=== PATIENT | female | born 2000 | race Caucasian/White ===

== ENCOUNTER 2022-12-26 09:20 | Outpatient (OUT) | payer BC, SELFPAY ==
--- NOTE | 2022-12-26 09:24 | US_ITS ---
[address] [address] Patient Name: CARLOS ENRIQUE GAUTAM MRN: [id number] date: 2000 Sex: F Assigned Patient Location: US Current Patient Location: Accession/Order Number: [id number] Exam Date: 12/26/2022 09:24 Report Date: 12/26/2022 13:11 At the request of: OSMAR LEE Procedure: US pelvis EXAMINATION: US pelvis HISTORY: OVARIAN CYST follow-up COMPARISON: No relevant comparison available. TECHNIQUE: Transabdominal and/or transvaginal sonographic examination was performed as indicated by examination type. FINDINGS: UTERUS: Normal size and appearance. Uterus size: 7.3 x 2.3 x 3.6 cm ENDOMETRIUM: Normal homogeneous appearance. Endometrial thickness: 4 mm RIGHT OVARY: Normal size and appearance. Blood flow present within ovary on color Doppler. Ovary size: 2.4 x 1.3 x 1.5 cm LEFT OVARY: Normal size and appearance; incidental 1.1 cm dominant follicle. Duplex Doppler demonstrates normal waveform and flow; resistive index 0.6. Ovary size: 3.1 x 1.0 x 1.9 cm CUL-DE-SAC: Unremarkable. No significant free fluid. BLADDER: Unremarkable. OTHER: None. US/US pelvis IMPRESSION: 1. Normal appearance of the uterus, endometrium, and ovaries. Electronically authenticated by: ANAIS GAMEZ Date: 12/26/2022 13:11
== END 2022-12-26 09:21 | disposition home or self-care (01) ==
LOC: US 09:21
PROVIDERS: PCP Family Medicine; Visit Provider Obstetrics & Gynecology
DX: Z87.42 Personal history of other diseases of the female genital tract (principal); Q62.5 Duplication of ureter
CPT/HCPCS: 76856

== ENCOUNTER 2023-12-18 20:49 | Outpatient (REF) | payer OTHER, SELFPAY | END 2023-12-18 20:50 | disposition home or self-care (01) | LOC: LAB 20:49 | PROVIDERS: PCP Family Medicine; Visit Provider Obstetrics & Gynecology | DX: Z01.419 Encounter for gynecological examination (general) (routine) without abnormal findings (principal) | CPT/HCPCS: 88175 ==

== ENCOUNTER 2025-01-28 20:14 | Outpatient (REF) | payer OTHER, SELFPAY ==
--- OUTSIDE RECORDS SUMMARY | 2025-01-28 15:00 | XMS_ITS | Encounter Summary ---
Author Organization [facility] Address [address] [place] [address] Care Team Providers Care Journeyman Operator Assistant Name Role Phone Petty Araya MD Primary Care Provider [phone] Nancy Atwood CORPORATE PLANNING MANAGER Unavailable [phone] Nnacy Atwood CORPORATE PLANNING MANAGER Unavailable [phone] Reason for Visit * Reason Comments Well Women Visit Encounter Details Date Type Department Care Team (Latest Contact Info) Description 01/28/2025 3:00 PM EDT Procedure Visit [facility] [address] [place] [address] Clarita Kimball PA [address] [place], [facility]11 Well woman exam with routine gynecological exam Social History Tobacco Use Types Packs/Day Years Used Date Smoking Tobacco: Never Smokeless Tobacco: Never Alcohol Use Standard Drinks/Week Comments Yes 2 (1 standard drink = 0.6 oz pur e alcohol) B1300 Health Literacy Answer Date Recor ded How often do you need to hav e someone help you when you read instructions, pamphlets, or other written material from your doctor or pharmacy? Never 09/18/2024 Humiliation, Afraid, Rape, and Kick questionnair e Answer Date Recorded Within the last year, have y ou been afraid of your partner or ex-partner? No 09/18/2024 Within the last year, have y ou been humiliated or emotionally abused in other ways by your partner or ex-partner? No Within the last year, have y ou been kicked, hit, slapped, or otherwise physically hurt by your partner or ex-partner? No 09/18/2024 Within the last year, have y ou been raped or forced to have any kind of sexual activity by your partner or ex-partner? No 09/18/2024 Social Connection and Isolat ion Panel [NHANES] Answer Date Recorded In a typical week, how many times do you talk on the phone with family, friends, or neighbors? More than three times a week 09/18/2024 How often do you get togethe r with friends or relatives? Once a week 09/18/2024 How often do you attend chur or sabianism services? 1 to 4 times per year 09/18/2024 Do you belong to any clubs o r organizations such as presybeterian groups, unions, fraternal or athletic groups, or school groups? No 09/18/2024 How often do you attend meet ings of the clubs or organizations you belong to? Never 09/18/2024 Are you , , di vorced, , never , or living with a partner? Never 09/18/2024 AUDIT-C Answer Date Recorded Q1: How often do you have a drink containing alc ohol? 2-4 times a month 09/18/2024 Q2: How many drinks containi ng alcohol do you have on a typical day when you are drinking? 3 or 4 09/18/2024 Q3: How often do you have si x or more drinks on one occasion? Less than monthly 09/18/2024 Overall Financial Resource Strain (CARDIA) Answe r Date Recorded How hard is it for you to pa y for the very basics like food, housing, medical care, and heating? Not hard at all 09/18/2024 [facility] [place] of Occupat ional Health - Occupational Stress Questionnaire Answer Date Recorded Do you feel stress - tense, restless, nervous, or anxious, or unable to sleep at night because your mind is troubled all the time - these days? Only a little 09/18/2024 Exercise Vital Sign Answer Date Recorde d On average, how many days pe r week do you engage in moderate to strenuous exercise (like a brisk walk)? 3 days 09/18/2024 On average, how many minutes do you engage in exercise at this level? 60 min 09/18/2024 Hunger Vital Sign Answer Date Recorded Within the past 12 months, y ou worried that your food would run out before you got the money to buy more. Never true 09/19/19 25 Within the past 12 months, t he food you bought just didn't last and you didn't have money to get more. Never true 09/18/2024 PRAPARE - Transportation Answer Date Re corded In the past 12 months, has l ack of transportation kept you from medical appointments or from getting medications? No 11/2024 In the past 12 months, has l ack of transportation kept you from meetings, work, or from getting things needed for daily living? No 09/18/2024 Housing Stability Vital Sign Answer Willy e Recorded In the last 12 months, was t here a time when you were not able to pay the mortgage or rent on time? No 09/18/2024 In the past 12 months, how m any times have you moved where you were living? 1 09/18/2024 At any time in the past 12 m [facility], were you homeless or living in a halfway (including now)? No 09/18/2024 Comments No Sex and Gender Information Value Date Recorded Sex Assigned at Not on file Legal Sex Female 7:15 PM EDT Gender Identity Not on file Sexual Orientation Not on file documented as of this encounter Last Filed Vital Signs Vital Sign Reading Time Taken Comments Blood Pressure - - Pulse - - Temperature - - Respiratory Rate - - Oxygen Saturation - - Inhaled Oxygen Concentration - - Weight 74.9 kg (165 lb 1.9 oz) 01/28/2025 3:02 P M EDT Height - - Body Mass Index 26.65 07/25/2023 3:24 PM EDT documented in this encounter Plan of Treatment Upcoming Encounters Date Type Department Care Team (Late st Contact Info) Description 04/16/2025 2:30 PM EST Office Visit [facility] [address] [facility] [address] Nancy Atwood NP [address] [place], [place] [id number] 01/22/2026 11:00 AM EDT Procedure Visit [facility] [address] [place] [address] Clarita Kimball PA [address] [place], [place] [id number] Scheduled Orders Name Type Priority Associated Diagnoses Orde r Schedule Pap Smear Pathology and Cytology Routine Well woman exam with routine gynecological exam Ordered: 01/28/2025 documented as of this encounter Visit Diagnoses Diagnosis Well woman exam with routine gynecological exam Routine gynecological examination documented in this encounter Care Teams Journeyman Operator Assistant Relationship Specialty Start Date End Date Herreraly, Petty Cervantes MD PCP - General Family Medicine 09/19/24 Nancy Atwood CORPORATE PLANNING MANAGER [address] [place] [address] PCP - Medical [place] [employer] 12/27/22 05/14/99 Nancy Atwood CORPORATE PLANNING MANAGER [address] [place], [place] [id number] Nurse Practitioner Family Medicine 10/01/24 documented as of this encounter
--- OUTSIDE RECORDS SUMMARY | 2025-01-28 20:18 | XMS_ITS | Clinical Summary ---
Author Organization [facility] Address [address] [place] [address] Care Team Providers Care Fingerprint Clerk Name Role Phone Darwin Contreras MD Primary Care Provider [phone] Allergies No known active allergies Medications lisdexamfetamine (VYVANSE) 40 MG capsule Take 1 (one) capsule (40 mg total) by mouth daily . 08/12/2022 Active montelukast (SINGULAIR) 10 mg tablet Take by mouth . 11/28/2019 Active Low-Ogestrel, 28, 0.3-30 mg-mcg per tablet Take 1 (one) tablet by mouth daily . Active levocetirizine (XYZAL) 5 MG tablet Take by mouth every evening . 01/19/2021 Active brompheniramine- pseudoePHEDrine- DM 2-30-10 mg/5 mL syrupIndications :Upper respiratory tract infection, unspecified type Take 10 mL by mouth 4 (four) times a day as needed (Medication may have drowsy side effect, do not combine with other sleep agents) . 200 mL 03/28/2023 Active Active Problems No known active problems Social History Tobacco Use Types Packs/Day Years Used Date Smoking Tobacco: Never Smokeless Tobacco: Never Tobacco Cessation:Counseling Given: Not Answered Comments Unknown Sex and Gender Information Value Date Recorded Sex Assigned at Not on file Legal Sex Female 4:44 AM EST Gender Identity Not on file Sexual Orientation Not on file Last Filed Vital Signs Vital Sign Reading Time Taken Comments Blood Pressure 123/83 03/28/2023 12:05 PM EST Pulse 98 03/28/2023 12:05 PM EST Temperature 36.8 C (98.2 F) 03/28/2023 12:05 PM EST Respiratory Rate 16 03/28/2023 12:05 PM EST Oxygen Saturation 98% 03/28/2023 12:05 PM EST Inhaled Oxygen Concentration - - Weight 68 kg (150 lb) 03/28/2023 12:05 PM EST Height 167.6 cm (5' 6 ) 03/28/2023 12:05 PM EST Body Mass Index 24.21 03/28/2023 12:05 PM EST Plan of Treatment Health Maintenance Due Date Last Done Comments Chlamydia Screening 2002 Depression Screening/Follow-Up (PHQ-2/9) 2014 HIV Screening 2017 Hepatitis C Screening 2020 Wellness Visit 12/01/2020 12/02/2019, 11/29/2018 Pap Smear 07/29/2023 Tetanus: Every 10yrs 07/31/2024 07/31/2014 COVID-19 Vaccine ( season) 2025 03/05/2021, 09/01/2020, 08/11/2020 Influenza Vaccine (#1) 2025 02/23/2023, 2021 Pneumococcal Vaccine: Ped or At-Risk Aged Out 02/01/2003, 2002, 2002 No longer eligible based on patient's age to complete this topic HPV Vaccines Completed 04/30/2020, 12/13, 10/29/2019, Additional history exists Insurance [facility] PPO BCBS OUT OF STATE [facility] Care Teams Fingerprint Clerk Relationship Specialty Start Date End Date Darwin Contreras MD [address] [place] [address] PCP - General Family Medicine 03/28/23
--- OUTSIDE RECORDS SUMMARY | 2025-01-28 20:18 | XMS_ITS | Encounter Summary ---
Author Organization [facility] Address [address] [place] [address] Care Team Providers Care Shipping Point Inspector Name Role Phone Petty Araya MD Primary Care Provider [phone] Nancy Atwood BROOM BUNDLER Unavailable [phone] Nancy Atwood BROOM BUNDLER Unavailable [phone] Encounter Details Date Type Department Care Team (Latest Contact Info) Description 01/28/2025 Travel Social History Tobacco Use Types Packs/Day Years [...] 09/18/2024 How often do you attend chur ch or jewish services? 1 to 4 times per year 09/18/2024 Do you belong to any clubs o r organizations such as orthodox groups, unions, fraternal or athletic groups, or [...] and heating? Not hard at all 09/18/2024 [facility] of Occupat ional Health - Occupational Stress [...] time in the past 12 m [facility], were you homeless or living in a halfway (including now)? No 09/18/2024 Comments No Sex and Gender Information Value Date Recorded Sex Assigned at Not on file Legal Sex Female 7:15 PM EDT Gender Identity Not on file Sexual Orientation Not on file documented as of this encounter Plan of Treatment Upcoming Encounters Date Type Department Care Team (Late st Contact Info) Description 04/16/2025 2:30 PM EST Office Visit [facility] [address] [place] [phone] Nancy Atwood NP [address] [place], [place] [id number] 01/22/2026 11:00 AM EDT Procedure Visit [facility]NA LEWIS [address] [phone] Clarita Kimball PA [address] [place] [address] documented as of this encounter Visit Diagnoses Not on filedocumented in this encounter Care Teams Shipping Point Inspector Relationship Specialty Start Date End Date Petty Araya MD PCP - General Family Medicine 09/19/24 Nancy Atwood NP [address] [place], [place] [phone] PCP - Medical [place] [employer] 12/27/22 05/14/99 Nancy Atwood NP [address] [place] [address] Nurse Practitioner Family Medicine 10/01/24 documented as of this encounter
--- OUTSIDE RECORDS SUMMARY | 2025-01-28 20:18 | XMS_ITS | Clinical Summary ---
Author Organization [facility] Address [address] [place] [address] Care Team Providers Care Agricultural Engineering Teacher Name Role Phone Darwin Contreras MD Primary Care Provider [phone] Allergies No known active allergies Medications Lisdexamfetamine Dimesylate 40 MG capsule Take 1 capsule by mouth daily. 3 Active norgestrel-ethinyl estradiol (Low-Ogestrel) 0.3-30 MG-MCG tablet Take 1 tablet by mouth daily. 3 Active Montelukast 10 MG tablet Take 1 tablet by mouth daily. Active Levocetirizine Dihydrochloride (XYZAL PO) Take by mouth. Active Social History Tobacco Use Types Packs/Day Years Used Date Smoking Tobacco: Never Smokeless Tobacco: Never Tobacco Cessation:Counseling Given: Not Answered Alcohol Use Standard Drinks/Week Comments Not Currently 0 (1 standard drink = 0.6 oz pur e alcohol) Comments Unknown Sex and Gender Information Value Date Recorded Sex Assigned at Not on file Legal Sex Female 3:34 PM EDT Gender Identity Female 12/28/2021 2:17 PM EDT Sexual Orientation Straight 12/28/2021 2: 17 PM EDT Last Filed Vital Signs Vital Sign Reading Time Taken Comments Blood Pressure 103/74 08/25/2022 7:17 PM EDT Pulse 98 08/25/2022 7:17 PM EDT Temperature 36.7 C (98.1 F) 08/25/2022 7:17 PM EDT Respiratory Rate 19 08/25/2022 7:17 PM EDT Oxygen Saturation 99% 08/25/2022 4:09 PM EDT Inhaled Oxygen Concentration - - Weight - - Height 167.6 cm (5' 6 ) 08/25/2022 4:09 PM EDT Body Mass Index - - Plan of Treatment Health Maintenance Due Date Last Done Comments HEPATITIS C VIRUS SCREENING 2002 HIV SCREENING DISCUSSION 2017 CERVICAL CANCER SCREENING DISCUSSION 07/29/2023 TETANUS 07/31/2024 07/31/2014, 12/13, 02/01/2003, Additional history exists CHLAMYDIA SCREEN 08/29/2024 08/30/2023 GONORRHEA SCREEN 08/29/2024 08/30/2023 COVID-19 VACCINE ( season) 2025 03/05/2021, 09/01/2020, 08/11/2020 INFLUENZA VACCINE (#1) 2025 02/23/2023, 2021 HEP B VACCINE Completed 02/01/2003, 11/12, 2002 PNEUMOCOCCAL VACCINE SERIES Aged Out 01/14, 2002, 2002 No longer eligible based on patient's age to complete this topic TDAP (ADULT) Completed 07/31/2014, 12/13, 02/01/2003 HPV VACCINE ADOL Completed 04/30/2020, , 10/29/2019 HPV VACCINE Completed 04/30/2020, 12/13, 10/29/2019 Procedures Procedure Name Priority Date/Time Associated Diagnosis Comments CHLAMYDIA & GONORRHEA AMPLIFIED PROBE Routine 08/30/2023 2:57 PM EDT Acute candidiasis of vulva and vagina Tachycardia, unspecified from Last 3 Months or Most Recently Relevant to Health Maintenance Results * CHLAMYDIA & GONORRHEA AMPLIFIED PROBE (08/30/2023 2:57 PM EDT) Chlamydia trachomatis Amplified Probe Not Detected Not Detected HOLOGIC PANTHER 08/31/2023 7:46 AM EDT [facility] Comment:A negative test resu lt for Chlamydia trachomatis does not preclude the possibility of infection. Results should be considered in conjunction with other clinical and laboratory findings. Neisseria gonorrhea Amplified Probe Not Detected Not Detected HOLOGIC PANTHER 08/31/2023 7:46 AM EDT [facility] Comment:A negative test resu lt for Neisseria gonorrhoeae does not preclude the possibility of infection. Results should be considered in conjunction with other clinical and laboratory findings. Genital Fluid/Swab SPECIMEN FROM VAGINA / Unknown 08/30/2023 2:57 PM EDT 08/30/2023 8:48 PM EDT Narrative [facility] - 08/31/2023 7:46 AM EDT This test was performed using Weblogic Administrator Mediated Amplification for the detection of Chlamydia trachomatis and/or Neisseria gonorrhoeae nucleic acid. This assay is not intended for the evaluation of suspected sexual abuse or other medico-legal indications. Beny Márquez MD MICROBIOLOGY - GENERAL ORDERABLES Final Result [facility] [address] [address] from Last 3 Months or Most Recently Relevant to Health Maintenance [facility] Care Teams Agricultural Engineering Teacher Relationship Specialty Start Date End Date Darwin Contreras MD PCP - General Family Medicine 08/25/22
--- OUTSIDE RECORDS SUMMARY | 2025-01-28 20:18 | XMS_ITS | Encounter Summary ---
Author Organization [facility] Address [address] [place] [address] Care Team Providers Care Cash Applications Representative Name Role Phone Petty Araya MD Primary Care Provider [phone] Nancy Atwood TAKER AWAY Unavailable [phone] Nancy Atwood TAKER AWAY Unavailable [phone] Reason for Visit * Reason Comments Med Refill Encounter Details Date Type Department Care Team (Late st Contact Info) Description 01/18/2025 Refill [facility] [address] [place] [address] Pradip Fallon DO [address] [place], [place] [id number] Encounter for surveillance of contraceptive pills Social History Tobacco Use Types Packs/Day Years [...] How often do you attend chur or hindu services? 1 to 4 times per year 09/18/2024 Do you belong to any clubs o r organizations such as mu-ism groups, unions, fraternal or athletic groups, or [...] and heating? Not hard at all 09/18/2024 [facility] [place] of Occupat ional Health - Occupational Stress [...] any time in the past 12 m [facility], were you homeless or living in a nursing home (including now)? No 09/18/2024 Comments No Sex [...] Office Visit [facility] [address] [place] [phone] Nancy Atwood NP [address] [place] [address] 01/22/2026 11:00 AM EDT Procedure Visit [facility]NA LEW[facility] [address] [place] [phone] Clarita Kimball PA [address] [place], [place] [phone] documented as of this encounter Visit Diagnoses Diagnosis Encounter for surveillance of contraceptive pills documented in this encounter Care Teams Cash Applications Representative Relationship Specialty Start Date End Date Wonderly, Petty Cervantes MD PCP - General Family Medicine 09/19/24 Nancy Atwood NP [address] [place], [place] [phone] PCP - Medical [facility] 12/27/22 05/14/99 Nancy Atwood NP [address] [place], [place] [phone] Nurse Practitioner Family Medicine 10/01/24 documented as of this encounter
--- OUTSIDE RECORDS SUMMARY | 2025-01-28 20:18 | XMS_ITS | Encounter Summary ---
Author Organization [facility] Address [address] [facility] [place] [address] Care Team Providers Care Gang Investigator Name Role Phone Petty Araya MD Primary Care Provider [phone] Nancy Atwood DELIVERY REP Unavailable [phone] Nancy Atwood DELIVERY REP Unavailable [phone] Encounter Details Date Type Department Care Team (Late st Contact Info) Description 01/28/2025 [employer] flowsheet [facility] [address] [place] [address] Clarita Kimball PA [address] [place], [facility] Social History Tobacco Use Types Packs/Day Years [...] How often do you attend chur or samaritan services? 1 to 4 times per year 09/18/2024 Do you belong to any clubs o r organizations such as restorationist groups, unions, fraternal or athletic groups, or [...] and heating? Not hard at all 09/18/2024 [facility] [place] of Occupat ional Health - Occupational Stress [...] any time in the past 12 m [facility], were you homeless or living in a residential (including now)? No 09/18/2024 Comments No Sex [...] Visit [facility] [address] [place] [address] Nancy Atwood NP [address] [place] [address] 01/22/2026 11:00 AM EDT Procedure Visit [facility]NA LEW[facility] [address] [place] [address] Clarita Kimball PA [address] [place] [address] documented as of this encounter Visit Diagnoses Not on filedocumented in this encounter Care Teams Gang Investigator Relationship Specialty Start Date End Date Wonderly, Petty Cervantes MD PCP - General Family Medicine 09/19/24 Nancy Atwood NP [address] [place], [place] [id number] PCP - Medical [place] [employer] 12/27/22 05/14/99 Nancy Atwood NP [address] [place], [place] [phone] Nurse Practitioner Family Medicine 10/01/24 documented as of this encounter
--- OUTSIDE RECORDS SUMMARY | 2025-01-28 20:18 | XMS_ITS | Encounter Summary ---
Author Organization [facility] Address [address] [place] [address] Care Team Providers Care Fitness Plan Coordinator Name Role Phone Petty Araya MD Primary Care Provider [phone] Nancy Atwood MAINTENANCE PLUMBER Unavailable [phone] Nancy Atwood MAINTENANCE PLUMBER Unavailable [phone] Encounter Details Date Type Department Care Team (Late st Contact Info) Description 01/20/2025 Orders Only [facility] [address] [place] [address] Summer Terrazas LPN [address] [place] [address] Social History Tobacco Use Types Packs/Day Years [...] How often do you attend chur or yazdanism services? 1 to 4 times per year 09/18/2024 Do you belong to any clubs o r organizations such as episcopalian groups, unions, fraternal or athletic groups, or [...] and heating? Not hard at all 09/18/2024 [facility] [place] of Occupat ional Health - Occupational Stress [...] any time in the past 12 m [facility], were you homeless or living in a half-way (including now)? No 09/18/2024 Comments No Sex and Gender Information Value Date Recorded Sex Assigned at Not on file Legal Sex Female 7:15 PM EDT Gender Identity Not on file Sexual Orientation Not on file documented as of this encounter Plan of Treatment Upcoming Encounters Date Type Department Care Team (Late st Contact Info) Description 04/16/2025 2:30 PM EST Office Visit [facility] [address] [place] [address] Nancy Atwood NP [address] [place] [address] 01/22/2026 11:00 AM EDT Procedure Visit [facility]NA LEWIS [address] [place] [address] Clarita Kimball PA [address] [address] documented as of this encounter Procedures Procedure Name Priority Date/Time Associated Diagnosis Comments PAP SMEAR Routine 12/18/2023 12:00 AM EDT documented in this encounter Results * Pap Smear (12/18/2023 12:00 AM EDT) Swab Cervical swab / Unknown Vasyl Nurse [facility] CYTOLOGY ORDERABLES Final Result EXTERNAL LAB documented in this encounter Visit Diagnoses Not on filedocumented in this encounter Care Teams Fitness Plan Coordinator Relationship Specialty Start Date End Date Petty Araya MD PCP - General Family Medicine 09/19/24 Nancy Atwood NP [address] [address] PCP - Medical [place] [employer] 12/27/22 05/14/99 Nancy Atwood NP [address] [address] Nurse Practitioner Family Medicine 10/01/24 documented as of this encounter
--- OUTSIDE RECORDS SUMMARY | 2025-01-28 20:18 | XMS_ITS | Clinical Summary ---
Author Organization [facility] Address [address], [address] [place] [address] Care Team Providers Care Car Ferrier Name Role Phone Unavailable Primary Care Provider Unavailabl e Encounters Date Type Department Care Team Description 11/07/2024 7:02 AM EDT - 11/07/2024 11:59 PM EDT Hospital Encounter [facility] [address] [place], [place] [id number] Discharge Disposition: Home or Self Care from Last 3 Months Social History Tobacco Use Types Packs/Day Years Used Date Smoking Tobacco: Never Assessed Comments Unknown Sex and Gender Information Value Date Recorded Sex Assigned at Not on file Legal Sex Female 2:54 PM EDT Gender Identity Not on file Sexual Orientation Not on file Plan of Treatment Health Maintenance Due Date Last Done Comments Flu vaccine (#1) 12/13/2024 06/14/2024, 04/2023, 02/22/2022 COVID-19 Vaccine (2023-2 5 season) 2025 DTaP/Tdap/Td vaccine (8 - Td or Tdap) 10/24/2034 10/24/2024, 07/31/2014, 12/27/2007, Additional history exists Polio vaccine Completed 12/27/2007, 01/14, 2002, Additional history exists Procedures Procedure Name Priority Date/Time Associated Diagnosis Comments QUANTIFERON (R) TB GOLD Routine 11/07/2024 1:23 PM EDT from Last 3 Months Results * Quantiferon TB Gold (11/07/2024 1:23 PM EDT) QuantiFERON Nil 0.04 IU/mL 1:23 PM EDT [facility] Quantiferon TB1 Minus NIL 0.01 0.00 - 0.34 IU/mL 11/07/2024 1:23 PM EDT [facility] Quantiferon TB2 Minus NIL 0.00 0.00 - 0.34 IU/mL 11/07/2024 1:23 PM EDT [facility] QuantiFERON-TB minus NIL 9.96 IU/mL 11/07/2024 1:23 PM EDT [facility] Quantiferon TB Interpretation NEGATIVE NEGATIVE IU/mL 11/07/2024 1:23 PM EDT [facility] Comment: Quantiferon TB Gold Plus Interferon gamma release is measured for specimens from each of the four collection tubes. A qualitative result (Negative, Positive, or Indeterminate) is based on interpretation of the four values: NIL, MITOGEN minus NIL (MITOGEN-NIL), TB1 minus NIL (TB1-NIL), and TB2 minus NIL (TB2-NIL). The NIL value represents nonspecific reactivity produced by the patient specimen. The MITOGEN-NIL value serves as the positive control for the patient specimen, demonstrating successful lymphocyte activity. The TB1-NIL tube specifically detects CD4+ lymphocyte reactivity, specifically stimulated by the TB1 antigens. The TB2-NIL tube detects both CD4+ and CD8+ lymphocyte reactivity, stimulated by TB2 antigens. An overall negative result does not preclude the possibility of M. tuberculosis infection or tuberculosis disease. A false-positive result in the absence of other clinical evidence of TB infection is not uncommon. Refer to: Updated Guidelines for Using Interferon Gamma Release Assays to Detect Mycobacterium tuberculosis Infection -- [place], 2010 (http://www.cdc.gov/mmwr/preview/mmwrhtml/jb0995e6.htm), for more information concerning test performance in low-prevalence populations and use in occupational screening. 11/07/2024 1:23 PM EDT 11/07/2024 1:23 PM EDT Xiomara Jeronimo PA-C HEMATOLOGY ORDERABLES Final Result [facility] [address] [place] [address], [place] [phone] from Last 3 Months
--- OUTSIDE RECORDS SUMMARY | 2025-01-28 20:18 | XMS_ITS | Encounter Summary ---
Author Organization [facility] Address [address] [facility] [place] [address] Care Team Providers Care Environmental Technician Name Role Phone Darwin Contreras MD Primary Care Provider [phone] Petty Araya MD Primary Care Provider [phone] Nancy Atwood REAGENT TENDER HELPER Unavailable [phone] Nancy Atwood REAGENT TENDER HELPER Unavailable [phone] Encounter Details Date Type Department Care Team (Late st Contact Info) Description 12/20/[address] [facility] Miladis [address] [place] [id number] Bill Beltran DPM [address] [facility] [place] [address] Social History Tobacco Use Types Packs/Day Years Used Date Smoking Tobacco: Never Alcohol Use Standard Drinks/Week Comments Never 0 (1 standard drink = 0.6 oz pur e alcohol) Comments Unknown Sex and Gender Information Value Date Recorded Sex Assigned at Not on file Legal Sex Female 7:15 PM EDT Gender Identity Not on file Sexual Orientation Not on file COVID-19 Exposure Response Date Recorded In the last 10 days, have yo u been in contact with someone who was confirmed or suspected to have Coronavirus/COVID-19? No / Unsure 12/19/2022 2:13 PM EDT documented as of this encounter Plan of Treatment Upcoming Encounters Date Type Department Care Team (Late st Contact Info) Description 04/16/2025 2:30 PM EST Office Visit [facility] [address] [place] [address] Nancy Atwood NP [address] [place] [id number] 01/22/2026 11:00 AM EDT Procedure Visit [facility] [address] [place] [address] Clarita Kimball PA [address] [place], [place] [id number] documented as of this encounter Visit Diagnoses Not on filedocumented in this encounter Care Teams Environmental Technician Relationship Specialty Start Date End Date Darwin Contreras MD PCP - General Family Medicine 10/13/22 09/18/24 Petty Araya MD PCP - General Family Medicine 09/19/24 Nancy Atwood NP [address] [place] [id number] PCP - Medical [employer] 12/27/22 05/14/99 Nancy Atwood NP [address] [place] [id number] Nurse Practitioner Family Medicine 10/01/24 documented as of this encounter
--- OUTSIDE RECORDS SUMMARY | 2025-01-28 20:18 | XMS_ITS | Clinical Summary ---
Author Organization [facility] Address [address] [place] [address] Care Team Providers Care Watch Dial Maker Name Role Phone Petty Araya MD Primary Care Provider [phone] Nancy Atwood DEVELOPMENT TRAINER Unavailable [phone] Nancy Atwood DEVELOPMENT TRAINER Unavailable [phone] Allergies No known active allergies Medications levocetirizine (Xyzal) 5 MG tablet Take by mouth in the evening. Active clindamycin (Clindagel) 1 % gel Apply 1 application topically Daily Active amphetamine-dext roamphetamine (Adderall) 15 MG tabletIndication s:Other specified attention deficit hyperactivity disorder (ADHD) Take 1 tablet (15 mg) by mouth Daily 30 tablet 025 2024 Active Low-Ogestrel 0.3-30 MG-MCG tabletIndication s:Encounter for surveillance of contraceptive pills TAKE 1 TABLET BY MOUTH EVERY DAY 84 tablet 4 025 Active norgestrel-ethin yl estradiol (Low-osgestrel,C ryselle) 0.3-30 MG-MCG tabletIndication s:Encounter for surveillance of contraceptive pills Take 1 tablet by mouth Daily 28 tablet 12 024 2024 Discontinued amphetamine-dext roamphetamine (Adderall) 15 MG tabletIndication s:Wellness examination,Othe r specified attention deficit hyperactivity disorder (ADHD) Take 1 tablet (15 mg) by mouth Daily 30 tablet 025 2024 Discontinued(R eorder) Active Problems Problem Noted Date Diagnosed Date Anxiety and depression 09/19/2024 Other specified attention de ficit hyperactivity disorder (ADHD) 09/19/2024 Acne vulgaris 12/19/2017 Resolved Problems Problem Noted Date Diagnosed Date Resolved Date Calculus of kidney 08/28/2021 Overview (09/18/2024): 01/08/24 Overall doing well will check KUB if no stones again will plan for p.r.n. follow-up. 12/26/22: Doing well, KUB today and in 1 year 12/17/2021: Litholink high sodium slightly high calcium. Discussed dietary modifications no medication needed at this time. Follow-up in 1 year with KUB. Discussed general stone recs as per below. Will also plan for litho link. Follow-up in 3 months with this and KUB. Stones sent for analysis Encounters Date Type Department Care Team Description 01/28/2025 3:00 PM EDT Procedure Visit [facility] [address] [place] [phone] Clarita Kimball PA Well woman exam with routine gynecological exam 01/28/2025 Bamboo flowsheet [facility] [address] [place] [address] Clarita Kimball PA 01/28/2025 Travel 01/20/2025 Orders Only [facility] [address] [place] [address] Summer Terrazas LPN 01/18/2025 Refill [facility] [address] [place] [address] Pradip Fallon DO Encounter for surveillance of contraceptive pills 01/06/2025 Refill [facility] [address] [facility] [address] [place] [address] Petty Friedman MD Wellness examination; Other specified attention deficit hyperactivity disorder (ADHD) 12/03/2024 Telephone [facility] [address] [facility] [facility] [address] [place] [phone] Petty Araya MD r/s appt 12/02/2024 Refill [facility] [address] [facility] [facility] [address] [place] [address] Petty Friedman MD Wellness examination; Other specified attention deficit hyperactivity disorder (ADHD) 10/30[facility]20[facility] [address] [facility] [facility] [address] Nancy Atwood NP Wellness examination; Other specified attention deficit hyperactivity disorder (ADHD) from Last 3 Months Immunizations Immunization Administration Dates Next Due DTaP 12/27/2007,02/01/2003 DTaP / Hep B / IPV 02/01/2003 DTaP, Unspecified 01/26/2004,2002,10/05/19 03 HPV 9-Valent 04/30/2020,12/30/2019,10/29/2019 Hep A, ped/adol, 2 dose 04/30/2020,10/29/2019 Hep B, Adolescent or Pediatric 2002,2002 Hib (PRP-T) 01/26/2004, 3,2002,10/04 IPV 12/27/2007,2002,2002 Influenza, Injectable, MDCK, preservative free 06/14/2024 Influenza, injectable, MDCK, preservative free, quadrivalent 02/22/2022 Influenza, injectable, quadr ivalent, preservative free 02/23/2023 MMR 01/26/2004,11/04/2003 Meningococcal ACWY, unspecified 10/29/2019,07/31 Meningococcal MCV4O 10/29/2019,07/31/2014 Pneumococcal Conjugate PCV 7 02/01/2003,11/29/19 03,2002 Tdap 07/31/2014 Varicella 12/27/2007,08/09/2003 Family History Medical History Relation Name Comments Cancer Maternal Grandmother Drea markwith Stroke Maternal Grandmother Drea markwith Hypertension Other Grandparent Neuroblastoma Other Grandparent Stroke Other Grandparent Cancer Paternal Grandmother Petty Trinh Relation Name Status Comments Father Alive Maternal Grandmother Drea hummel Mother Alive Other Grandparent Paternal Grandmother Petty Trinh Social History Tobacco Use Types Packs/Day Years Used Date Smoking Tobacco: Never Smokeless Tobacco: Never Tobacco Cessation:Counseling Given: Not Answered Alcohol Use Standard Drinks/Week Comments Yes 2 [...] How often do you attend chur or judaism services? 1 to 4 times per year 09/18/2024 Do you belong to any clubs o r organizations such as congregation groups, unions, fraternal or athletic groups, or [...] and heating? Not hard at all 09/18/2024 [facility]ational Stress Questionnaire Answer Date Recorded [...] any time in the past 12 m [facility], were you homeless or living in a group home (including now)? No 09/18/2024 Comments No Sex and Gender Information Value Date Recorded Sex Assigned at Not on file Legal Sex Female 7:15 PM EDT Gender Identity Not on file Sexual Orientation Not on file Last Filed Vital Signs Vital Sign Reading Time Taken Comments Blood Pressure 118/80 09/19/2024 9:00 AM EDT Pulse 68 09/19/2024 9:00 AM EDT Temperature - - Respiratory Rate - - Oxygen Saturation - - Inhaled Oxygen Concentration - - Weight 74.9 kg (165 lb 1.9 oz) 01/28/2025 3:02 P M EDT Height 167.6 cm (5' 6 ) 07/25/2023 3:24 PM EDT Body Mass Index 26.65 07/25/2023 3:24 PM EDT Plan of Treatment Upcoming Encounters Date Type Department Care Team (Late st Contact Info) Description 04/16/2025 2:30 PM EST Office Visit [facility] [place] [facility] [address] [place] [address] Nancy Atwood NP [address] [place], [place] [phone] 01/22/2026 11:00 AM EDT Procedure Visit [facility] [address] [place] [address] Clarita Kimball PA [address] [place], [place] [phone] Health Maintenance Due Date Last Done Comments Influenza Vaccine (#1) 2025 06/14/2024, 2022, 02/22/2022 Insurance [employer] Care Teams Watch Dial Maker Relationship Specialty Start Date End Date Herreraly, Petty Cervantes MD PCP - General Family Medicine 09/19/24 Nancy Atwood NP [address] [place], [place] [id number] PCP - Medical [employer] 12/27/22 05/14/99 Nancy Atwood NP [address] [place] [address] Nurse Practitioner Family Medicine 10/01/24
--- OUTSIDE RECORDS SUMMARY | 2025-01-28 20:20 | XMS_ITS | CCD ---
Author Organization [facility] CliniSywv Care Team Providers Care Plastic Outfitter Name Role Phone PAY, DR VALLECILLO Admitting Unavailable DEFRANCE, DR NAZARIO Primary Care Unavailable SAM PARKINSON Consulting Unavailable PAY, DR VALLECILLO Attending Unavailable MISC, DR MCKNIGHT Consulting Unavailable MISC, DR MCKNIGHT Attending Unavailable MISC, DR MCKNIGHT Admitting Unavailable DEFRANCE, DR NAZARIO Primary Care Unavailable Adina Mckeon Unavailable Akila Zelaya Unavailable Mansi Contreras MD Primary Care Provider [phone] Yoanna Anthony Unavailable Yoanna Anthony Attending Unavailable Yoanna Anthony Admitting Unavailable Defrance, Mansi Primary Care Unavailable Mansi Contreras MD Primary Care Provider SPENCER IBRAHIM Attending Unavailable MANSI CONTRERAS Primary Care Unavailable FUMMANSI Sharif Attending Unavailable DEFRANCE, MANSI Pope Referring Unavailable DEFRANCE, MANSI Pope Primary Care Unavailable FUMOMANSI Attending Unavailable FUMOMANSI Referring Unavailable DEFRANCE, MANSI Pope Primary Care Unavailable DEFRANCEMANSI Attending Unavailable DEFRANCE, MANSI Pope Referring Unavailable DEFRANCE, MANSI Pope Primary Care Unavailable DEFRANCEMANSI Attending Unavailable DEFRANCE, MANSI Pope Referring Unavailable DEFRANCE, MANSI Pope Primary Care Unavailable Mansi Contreras MD Primary Care Provider Wojciech Atwood MD Primary Care Provider [phone] Mansi Contreras MD Primary Care Provider NANCY ALVARENGA Attending Unavailable PRADIP FALLON Attending Unavailable Petty Araya MD Primary Care Provider Petty Araya MD Primary Care Provider Nancy Alvarenga NP Unavailable Clarita Elder Unavailable Unavailable Primary Care Provider UnavailMATEO Armando Referring Unavailable Angelic PAYNE, Nancy Denis Unavailable Medications Current Medications Medication Drug Class(es) Dates Sig (Normalized) Sig (Original) amphetamine aspartate 3.75 mg / amphetamine sulfate 3.75 mg / dextroamphetamine saccharate 3.75 mg / dextroamphetamine sulfate 3.75 mg oral tablet (20 sources) Central Nervous System Stimulant Start: 05-09-2024 End: 08-20-2024 take 1 capsule by mouth once daily in the morning amphetamine-dextro amphetamine XR (ADDERALL XR) 15 mg 24 hr capsule Indications: Attention deficit hyperactivity disorder (ADHD), predominantly inattentive type Take 1 capsule (15 mg total) by mouth in the morning. Max Daily Amount: 15 mg. 30 capsule 07/16/2024 08/20/2024 Discontinued (Reorder) Start: 03-04-2024 End: 04-08-2024 take 1 capsule by mouth once daily in the morning amphetamine-dextroamphetamine XR (ADDERA LL XR) 15 mg 24 hr capsule Indications: Attention deficit hyperactivity disorder (ADHD), predominantly inattentive type Take 1 capsule (15 mg total) by mouth in the morning. Max Daily Amount: 15 mg. 30 capsule 04/08/2024 Active Start: 11-22-2023 End: 02-05-2025 take 1 tablet by mouth once daily amphetamine-dextroamphetamine (Adderall) 15 MG tablet Indications: Other specified attention deficit hyperactivity disorder (ADHD) Take 1 tablet (15 mg) by mouth Daily 30 tablet 01/06/2025 02/05/2025 Active Start: 11-14-2023 End: 12-27-2023 take 1 capsule by mouth once daily in the morning amphetamine-dextroamphetamine XR (ADDERA LL XR) 15 mg 24 hr capsule Indications: Attention deficit hyperactivity disorder (ADHD), predominantly inattentive type Take 1 capsule (15 mg total) by mouth in the morning. Max Daily Amount: 15 mg. 30 capsule 12/27/2023 Active Amphetamine-Dext roamphet ER 15 MG Not Available Oral for 30 Days Not-Taking azithromycin 250 mg oral tablet (1 source) Macrolide Antimicrobial Start: 03-19-2024 End: 03-25-2024 take 1 tablet by mouth in the morning, then take 2 tablets by mouth once daily, then take 1 tablet by mouth once daily azithromycin (ZITHROMAX) 250 mg tablet Take 1 tablet (250 mg total) by mouth in the morning for 6 days. Take 2 tablets the first day, then 1 tablet daily for 4 days.. 6 tablet 03/19/2024 03/25/2024 Active brompheniramine maleate 0.4 mg/ml / dextromethorphan hydrobromide 2 mg/ml / pseudoephedrine hydrochloride 6 mg/ml oral solution (1 source) alpha-Adrenergic Agonist, Uncompetitive E-twgkmw-Z-asparta te Receptor Antagonist, Sigma-1 Agonist Start: 03-28-2023 take 10 mL by mouth four times daily as needed for sleep brompheniramine-ps eudoePHEDrine-DM 2-30-10 mg/5 mL syrup Indications: Upper respiratory tract infection, unspecified type Take 10 mL by mouth 4 (four) times a day as needed (Medication may have drowsy side effect, do not combine with other sleep agents) . 200 mL 0 03/28/2023 Active cephalexin 500 mg oral capsule (1 source) Cephalosporin Antibacterial Start: 08-25-2022 End: 09-01-2022 take 1 capsule by mouth twice daily cephALEXin 500 MG capsule Take 1 capsule by mouth 2 times daily for 7 days. 14 capsule 0 08/25/2022 09/01/2022 Active clindamycin 0.01 mg/mg topical gel (17 sources) Lincosamide Antibacterial Start: 01-24-2022 clindamycin (Clindagel) 1 % gel Apply 1 application topically Daily 04/29/2024 Active Doxycycline (2 sources) Tetracycline-class Drug Doxycycline Active Ethinyl Estradiol / Norgestrel (20 sources) Estrogen Start: 01-20-2025 take 1 tablet by mouth once daily Low-Ogestrel 0.3-30 MG-MCG tablet Indications: Encounter for surveillance of contraceptive pills TAKE 1 TABLET BY MOUTH EVERY DAY 84 tablet 4 01/20/2025 Active Start: 12-18-2023 norgestrel-eth inyl estradiol (Low-osgestrel,Cryselle) 0.3-30 MG-MCG tablet Indications: Encounter for surveillance of contraceptive pills Take 1 tablet by mouth Daily 28 tablet 12 12/18/2023 Active Start: 05-02-2023 take 1 tablet by lukas th once daily LOW-OGESTREL, 28, 0.3-30 mg-mcg per tabl et TAKE 1 TABLET BY MOUTH EVERY DAY 84 tablet 1 05/02/2023 Active Start: 06-22-2022 norgestrel-eth inyl estradiol (Low-Ogestrel) 0.3-30 MG-MCG tablet Take 1 tablet by mouth daily. 0 06/22/2022 Active take 1 tablet by lukas th once daily Low-Ogestrel, 28, 0.3-30 mg-mcg per tabl et Take 1 (one) tablet by mouth daily . 0 Active Low-Ogestrel 0.3 -30 MG-MCG Not Available Oral for 84 Days Active levocetirizine dihydrochloride 5 mg oral tablet (20 sources) Histamine-1 Receptor Antagonist Start: 01-19-2021 take 1 tablet by mouth once daily levocetirizine (XYZAL) 5 mg tablet Take 1 tablet (5 mg total) by mouth nightly. 01/19/2021 Active Levocetirizine D ihydrochloride (XYZAL PO) Take by mouth. 0 Active Levocetirizine D ihydrochloride Active nitrofurantoin, macrocrystals 25 mg / nitrofurantoin, monohydrate 75 mg oral capsule (8 sources) Nitrofuran Antibacterial Start: 01-23-2021 take 1 capsule by mouth every twelve hours Macrobid 100 MG 1 capsule with food Orally every 12 hrs for 7 days September, Active Completed/Discontinued Medications Medication Drug Class(es) Dates Sig (Normalized) Sig (Original) augmented betamethasone 0.5 mg/ml topical cream (5 sources) Corticosteroid Start: 03-29-2021 Betamethasone Dipropionate Aug 0.05 % 1 application Externally Once a day for 5 day(s) Mar, Not-Taking clotrimazole 0.01 mg/mg topical ointment (3 sources) Azole Antifungal Start: 11-25-2021 Alevazol 1 % 1 application Externally Twice a day for 10 day(s) Nov, Not-Taking ketoconazole 20 mg/ml medicated shampoo (2 sources) Azole Antifungal Start: 02-24-2023 End: 11-14-2023 ketoconazole (NIZORAL) 2 % shampoo 02/24/2023 11/14/2023 Discontinued (Alternate therapy) 1 ml ketorolac tromethamine 30 mg/ml cartridge (1 source) Nonsteroidal Anti-inflammatory Drug, Cyclooxygenase Inhibitor Start: 08-25-2022 End: 08-25-2022 Ketorolac (TORADOL) injection 15 mg lisdexamfetamine dimesylate 40 mg oral capsule (8 sources) Central Nervous System Stimulant Start: 10-23-2023 End: 11-14-2023 take 1 capsule by mouth once daily in the morning VYVANSE 40 mg capsule Indications: Attention deficit hyperactivity disorder (ADHD), predominantly inattentive type Take 1 capsule (40 mg total) by mouth in the morning. Max Daily Amount: 40 mg. 30 capsule 10/23/2023 11/14/2023 Discontinued (Alternate therapy) Start: 05-12-2023 take 1 capsule by mo uth once daily in the morning lisdexamfetamine (VYVANSE) 40 mg capsule Indications: Attention deficit hyperactivity disorder (ADHD), predominantly inattentive type Take 1 capsule (40 mg total) by mouth in the morning. Max Daily Amount: 40 mg. 30 capsule 0 05/12/2023 Active Start: 04-13-2023 End: 05-12-2023 take 1 capsule by mouth once daily in the morning lisdexamfetamine (VYVANSE) 40 mg capsule Indications: Attention deficit hyperactivity disorder (ADHD), predominantly inattentive type Take 1 capsule (40 mg total) by mouth in the morning. Max Daily Amount: 40 mg. 30 capsule 0 04/13/2023 05/12/2023 Discontinued (Reorder) Start: 08-12-2022 take 1 capsule by mo uth once daily lisdexamfetamine (VYVANSE) 40 MG capsule Take 1 (one) capsule (40 mg total) by mouth daily . 0 08/12/2022 Active Minocycline (3 sources) Tetracycline-class Drug Minocycl ine Not-Taking montelukast 10 mg oral tablet (9 sources) Leukotriene Receptor Antagonist Start: End: take 1 tablet by mouth in the morning montelukast (SINGULAIR) 10 mg tablet Take 1 tablet (10 mg total) by mouth in the morning. 11/28/2019 11/14/2023 Discontinued (Alternate therapy) Singulair Active 2 ml ondansetron 2 mg/ml injection (1 source) Serotonin-3 Receptor Antagonist Start: 08-25-2022 End: 08-25-2022 Ondansetron 4mg/2ml (ZOFRAN) injection 4 mg phenazopyridine hydrochloride 200 mg oral tablet (5 sources) Start: 01-23-2021 take 1 tablet by mouth every eight hours Pyridium 200 MG 1 tablet after meals Orally Three times a day for 2 day(s) Jan, Not-Taking 250 ml sodium chloride 9 mg/ml injection (1 source) Start: 08-25-2022 End: 08-25-2022 Sodium chloride 0.9% IV solution 1,000 mL Problems Active Problems Problem Classification Problem Date Documented Date Episodic/Chronic Administrative/social admission (4 sources) First encounter by subject; Translations: [Persons encountering health services in other specified circumstances] Onset: 11-07-2024 09-19-2024 Episodic Anxiety disorders (8 sources) Mixed anxiety and depressive disorder; Translations: [Anxiety disorder, unspecified] Onset: 09-19-2024 09-26-2024 Chronic Attention-deficit, conduct, and disruptive behavior disorders (1 source) Attention-deficit hyperactivity disorder, predominantly inattentive type; Translations: [Attention-deficit hyperactivity disorder, predominantly inattentive type] Onset: 11-14-2023 Chronic Attention-deficit, conduct, and disruptive behavior disorders (7 sources) Attention deficit hyperactivity disorder, predominantly inattentive type; Translations: [Attention-deficit hyperactivity disorder, predominantly inattentive type] 06-12-2024 Chronic Attention-deficit, conduct, and disruptive behavior disorders (11 sources) Attention deficit hyperactivity disorder; Translations: [Attention-deficit hyperactivity disorder, other type] Onset: 09-19-2024 09-19-2024 Chronic Conditions associated with dizziness or vertigo (4 sources) Dizziness and giddiness; Translations: [DIZZINESS AND GIDDINESS] Onset: 06-25-2021 Episodic Nausea and vomiting (2 sources) Nausea; Translations: [NAUSEA] Onset: 06-25-2021 Resolved: 06-25-2021 Episodic Other screening for suspected conditions (not mental disorders or infectious disease) (8 sources) Patient encounter status; Translations: [Encounter for screening for diseases of the blood and blood-forming organs and certain disorders involving the immune mechanism] 09-19-2024 Episodic Other upper respiratory disease (1 source) Pain in throat Onset: 03-19-2024 Episodic Other upper respiratory infections (8 sources) Sore throat symptom; Translations: [Acute pharyngitis, unspecified] Onset: 03-28-2023 03-28-2023 Episodic Residual codes; unclassified (2 sources) FH: Thyroid disorder; Translations: [Family history of other endocrine, nutritional and metabolic diseases] 09-26-2024 Episodic Unclassified (3 sources) CONTACT W/AND (SUSP) EXPOS COVID-19; Translations: [CONTACT W/AND (SUSP) EXPOS COVID-19] Onset: 01-27-2021 Unclassified (1 source) Routine Check up Onset: 11-14-2023 Urinary tract infections (2 sources) Urinary tract infectious disease; Translations: [Urinary tract infection, site not specified] Episodic Past or Other Problems Problem Classification Problem Date Documented Da te Episodic/Chronic Allergic reactions (1 source) Allergic contact dermatitis, unspecified cause Onset: 03-29-2021 Resolved: 03-29-2021 Episodic Calculus of urinary tract (20 sources) Kidney stone; Translations: [Calculus of kidney] Onset: 08-28-2021 Resolved: 09-18-2024 Episodic Genitourinary symptoms and ill-defined conditions (20 sources) Dysuria; Translations: [Dysuria] Onset: 10-08-2021 Episodic Mood disorders (11 sources) Mood disorders Onset: 11-14-2023 Resolved: 03-19-2024 03-19-2024 Other skin disorders (20 sources) Acne vulgaris; Translations: [Acne vulgaris] Onset: 12-19-2017 12-19-2017 Episodic Syncope (1 source) Syncope and collapse Onset: 06-25-2021 Resolved: 06-25-2021 Episodic Unclassified (1 source) CONTACT W/AND (SUSP) EXPOS COVID-19; Translations: [CONTACT W/AND (SUSP) EXPOS COVID-19] Onset: 01-19-2021 Results Test Name Value Interpretation Reference Range Facility QuantiFERON [facility]bon 11-08-2024 QFT Inter Negative Normal NEG [facility] Comment on above: Result Comment: Quantiferon TB Gold Plus Interferon gamma [...] Mycobacterium tuberculosis Infection -- [place], 2010 (http://www.cdc.gov/mmwr/preview/mmwrhtml/zv8409p4.htm), for more information concerning test performance in low-prevalence populations and use in occupational screening. Performed By: #### Q FTB #### [facility] [address] [place] [address] A Operator: Prabhakar Aguilera MD Quant Yovany minus NIL 9.96 IU/mL Normal [facility] Comment on above: Performed By: #### Q FTB #### [facility] [address] [place] [address] [id number] A Operator: Prabhakar Aguilera MD Quanti TB1 minus NIL 0.01 IU/mL Normal 0.00-0.34 [facility] Comment on above: Performed By: #### Q FTB #### [facility] [address] [place] [id number] A Operator: Prabhakar Aguilera MD Quanti TB2 minus NIL 0.00 IU/mL Normal 0.00-0.34 [facility] Comment on above: Performed By: #### Q FTB #### [facility] [address] [place] [address] A Operator: Prabhakar Aguilera MD QuantiFERON NIL 0.04 IU/mL Normal [facility] Comment on above: Performed By: #### Q FTB #### [facility] [address] [place], [place] [id number] A Operator: Prabhakar Aguilera MD CBC panel Auto (Bld)on 09-20 Erythrocyte distribution width (RBC) [Ratio] 12.5 % 11.0 - 15.0 % [facility] Hematocrit (Bld) [Volume fraction] 42.8 % 35.0 - 45.0 % [facility] ([facility] [Mass/Vol] 14.3 g/dL 11.7 - 15.5 g/dL [facility] MCH (RBC) [Entitic mass] 31.4 pg 27.0 - 33.0 pg [facility] MCHC (RBC) [Mass/Vol] 33.4 g/dL 32.0 - 36.0 g/dL [facility] Comment on above: For adults, a slight decrease in the calculated MCHC value (in the range of 30 to 32 g/dL) is most likely not clinically significant; however, it should be interpreted with caution in correlation with other red cell parameters and the patient's clinical condition. MCV (RBC) [Entitic vol] 93.9 fL 80.0 - 100.0 fL [facility] Platelet mean volume (Bld) [Entitic vol] 10.5 fL 7.5 - 12.5 fL [facility] (Bld) [#/Vol] 226 10*3/uL [facility] RBC (Bld) [#/Vol] 4.56 10*6/uL [facility] WBC (Bld) [#/Vol] 5.7 10*3/uL [facility] Chemistry and C hemistry - challengeon 09-20-2024 Albumin [Mass/Vol] 4.6 g/dL 3.6 - 5.1 g/dL [facility] Albumin/Globulin [Mass ratio] 1.8 {ratio} [facility] ALP [Catalytic activity/Vol] 63 U/L 31 - 125 U/L [facility] ALT [Catalytic activity/Vol] 18 U/L 6 - 29 U/L [facility] AST [Catalytic activity/Vol] 20 U/L 10 - 30 U/L [facility] Bilirubin [Mass/Vol] 0.7 mg/dL 0.2 - 1 .2 mg/dL [facility] Calcium [Mass/Vol] 10 mg/dL 8.6 - 10. 2 mg/dL [facility] Chloride [Moles/Vol] 104 mmol/L 98 - 11 0 mmol/L [facility] CO2 [Moles/Vol] 25 mmol/L 20 - 32 mmol/L [facility] Creatinine [Mass/Vol] 0.9 mg/dL 0.50 - 0.96 mg/dL [facility] Free T4 [Mass/Vol] 1.2 ng/dL 0.8 - 1.8 ng/dL [facility] GFR/1.73 sq M.predicted among non-blacks MDRD (S/P/Bld) [Vol rate/Area] 93 mL/min/{1.73_m2} > OR = 60 mL/min/1.73m2 [facility] Globulin (S) [Mass/Vol] 2.5 g/dL [facility] Glucose [Mass/Vol] 115 mg/dL High 65 - 99 mg/dL [facility] Comment on above: Fasting reference interval For someone without known diabetes, a glucose value between 100 and 125 mg/dL is consistent with prediabetes and should be confirmed with a follow-up test. Potassium [Moles/Vol] 4.2 mmol/L 3.5 - 5.3 mmol/L [facility] Protein [Mass/Vol] 7.1 g/dL 6.1 - 8.1 g/dL [facility] Sodium [Moles/Vol] 137 mmol/L 135 - 146 mmol/L [facility] TSH Qn 3.68 m[IU]/L mIU/L [facility] Comment on above: Reference Range > or = 20 Years 0.40-4.50 Ranges First trimester 0.26-2.66 Second trimester 0.55-2.73 Third trimester 0.43-2.91 Urea nitrogen [Mass/Vol] 11 mg/dL 7 - 25 mg/dL [facility] Urea nitrogen/Creatinine [Mass ratio] SEE NOTE: [facility] Comment on above: Not Reported: BUN an d Creatinine are within reference range. Lipid 1996 panelon 5 Cholesterol [Mass/Vol] 186 mg/dL [facility] mg[facility]dL [facility] Cholesterol in HDL [Mass/Vol] 55 mg/dL > OR = 50 [facility] Cholesterol in LDL [Mass/Vol] 106 mg/dL High mg/dL (calc) [facility] Comment on above: Reference range: <10 0 Desirable range <100 mg/dL for primary prevention; <70 mg/dL for patients with CHD or diabetic patients with > or = 2 CHD risk factors. LDL-C is now calculated using the Catie calculation, which is a validated novel method providing better accuracy than the Friedewald equation in the estimation of LDL-C. Hussain SEYMOUR et al. JG. 2013;310(19): 5975-1381 (http://education.Integromics/faq/JEG219) Cholesterol non HDL [Mass/Vol] 131 mg/dL High [facility] [place] Comment on above: For patients with di abetes plus 1 major ASCVD risk factor, treating to a non-HDL-C goal of <100 mg/dL (LDL-C of <70 mg/dL) is considered a therapeutic option. Cholesterol.total/Chol esterol in HDL [Mass ratio] 3.4 {ratio} [facility] [place] Triglyceride [Mass/Vol] 135 mg/dL [facility] - 150 mg/dL [facility] No Panel Informationon 09-20 Interpretation and review of laboratory results Abnormal [facility] Organization Information Site ID: [id number] Name: [facility] Address: [address] [place] [id number] Director: Lou Hoffman [facility] Organization Information Site ID: [id number] Name: [employer] [facility] Address: [address] [place] [phone] Director: Mitch Ortiz MD [facility] XR ABDOMEN AP 1 VWon 024 XR ABDOMEN AP 1 VW XR ABDOMEN AP 1 VW Abdomen single view Clinical history:Kidney stone renal calculus screening and follow-up Comparison: 12/26/2022 Findings: AP supine view of the abdomen. Nonobstructive bowel gas pattern. Moderate amount of gas and stool seen throughout the colon. Renal shadows are observed overlying enteric contents. No abnormal calcification currently appreciated. Impression: No current radiographic evidence of nephroureterolithia sis. Both renal shadows ventricular by overlying enteric contents. 3 Finalized by Romero Lopez MD on 01/09/2024 3:15 PM Normal [facility] CHLAMYDIA & GONORRHEA AMPLIF IED PROBEon 08-30-2023 Chlamydia trachomatis Amplified Probe Not detected Normal Not Detected [facility] Comment on above: Order Comment: This test was performed using Program Project Analyst Mediated Amplification for the detection of Chlamydia trachomatis and/or Neisseria gonorrhoeae nucleic acid. This assay is not intended for the evaluation of suspected sexual abuse or other medico-legal indications. Result Comment: A ne gative test result for Chlamydia trachomatis does not preclude the possibility of infection. Results should be considered in conjunction with other clinical and laboratory findings. Performed By: #### G CSCRN #### [facility] (DEFAULT) [address] [place] [address] Neisseria gonorrhea Amplified Probe Not detected Normal Not Detected [facility] Comment on above: Order Comment: This test was performed using Program Project Analyst Mediated Amplification for the detection of Chlamydia trachomatis and/or Neisseria gonorrhoeae nucleic acid. This assay is not intended for the evaluation of suspected sexual abuse or other medico-legal indications. Result Comment: A ne gative test result for Neisseria gonorrhoeae does not preclude the possibility of infection. Results should be considered in conjunction with other clinical and laboratory findings. Performed By: #### G CSCRN #### [facility] (DEFAULT) [address] [place] [address] POC Strep A - Molecularon Interpretation and review of laboratory results Normal [facility] S. pyogenes Ag Ql (Throat) Negative Negative [facility] Urinalysis - AUTOMATEDon Appearance (U) clear [employer] Other Bilirubin Ql (U) Negative [employer] Other Color (U) orange [employer] Other Glucose Ql (U) Negative [employer] Other Hemoglobin Ql (U) trace-lysed [employer] Other Ketones Ql (U) Negative [employer] Other Leukocyte esterase Test strip Ql (U) Negative [employer] Other Nitrite Ql (U) Positive [employer] Other pH (U) 6.0 [pH] [employer] Other Protein Ql (U) Negative [employer] Other Specific gravity (U) [Rel density] <1.005 [employer] Other Urobilinogen (U) [Mass/Vol] 0.2 mg/dL [employer] Other Urinalysis - AUTOMATED No rt [employer] Other Urine Cultureon 09-15-2022 Bacteria identified Cx Nom (U) Reason for Exam Dysuria Urine <9,000 colonies/ml mixed bacterial skin contaminants 2 Days PERFORMED BY: [place] [address] PATHOLOGIST DIETITIAN CONSULTANT HARPREET RIVERA M.D. [facility] Comment on above: Performed By: #### C UU #### [address] CBC AND ELECTRONIC DIFFon Basophils (Bld) [#/Vol] K/uL 0.00 - 0.15 K/uL [facility] Basophils/100 WBC (Bld) 0.2 % [facility] Differential cell count method Nom (Bld) Electronic Differential [facility] Eosinophils (Bld) [#/Vol] 0.07 10*3/uL 0.00 - 0.42 K/uL [facility] Eosinophils/100 WBC (Bld) 1.1 % [facility] Erythrocyte distribution width (RBC) [Ratio] 11.9 % 10.8 - 14.9 % [facility] Hematocrit (Bld) [Volume fraction] 40.0 % 34.9 - 44.3 % [facility] Hemoglobin (Bld) [Mass/Vol] 13.6 g/dL 11.4 - 15.2 g/dL [facility] Immature granulocytes (Bld) [#/Vol] K/uL NINF - 0.08 K/uL [facility] Immature granulocytes/100 WBC (Bld) 0.2 % [facility] Lymphocytes (Bld) [#/Vol] 2.92 10*3/uL 1.16 - 3.51 K/uL [facility] Lymphocytes/100 WBC (Bld) 46.1 % [facility] MCH (RBC) [Entitic mass] 31.8 pg 25.9 - 33.9 pg [facility] [facility] MCHC (RBC) [Mass/Vol] 34.0 g/dL 31.4 - 35.9 g/dL [facility] MCV (RBC) [Entitic vol] 93.5 fL 79.6 - 97.7 fL [facility] Monocytes (Bld) [#/Vol] 0.41 10*3/uL 0.22 - 0.87 K/uL [facility] Monocytes/100 WBC (Bld) 6.5 % [facility] Neutrophils (Bld) [#/Vol] 2.92 10*3/uL 1.64 - 7.28 K/uL [facility] Nucleated RBC/100 WBC (Bld) [Ratio] 0.0 % [facility] Platelet mean volume (Bld) [Entitic vol] 10.7 fL 8.5 - 12.2 fL [facility] Platelets (Bld) [#/Vol] 224 10*3/uL 150 - 393 K/uL [facility] RBC (Bld) [#/Vol] 4.28 10*6/uL [facility] Segmented neutrophils/100 WBC (Bld) 45.9 % [facility] WBC (Bld) [#/Vol] 6.34 10*3/uL 3.99 - 11. 19 K/uL [facility] CHEM 7 (LYTES,BUN,CREA,GLUC) on 08-25-2022 Anion gap [Moles/Vol] 11 mmol/L 7 - 17 mmol/L [facility] Chloride [Moles/Vol] 107 mmol/L 98 - 10 8 mmol/L [facility] CO2 [Moles/Vol] 23 mmol/L 21 - 31 mmol/L [facility] Creatinine [Mass/Vol] 0.85 mg/dL 0.50 - 1.20 mg/dL [facility] GFR/1.73 sq M.predicted CKD-EPI (S/P/Bld) [Vol rate/Area] - PINF [facility] Comment on above: Reported eGFR is bas ed on the CKD-EPI 2020 equation using creatinine, age, and sex. Glucose [Mass/Vol] 96 mg/dL 70 - 99 mg/dL [facility] Osmolality Calc [Osmolality] 286 [facility] Potassium [Moles/Vol] 4.2 mmol/L 3.5 - 5.0 mmol/L [facility] Sodium [Moles/Vol] 137 mmol/L 135 - 145 mmol/L [facility] Urea nitrogen [Mass/Vol] 8 mg/dL 7 - 25 mg/dL [facility] Urea nitrogen/Creatinine [Mass ratio] 9 mg/[facility] Abdomen and Pelvis WO con traston 08-25-2022 IMPRESSION: 1. Bilateral small nonobstructing renal calculi. No obstructing stones. No hydronephrosis. 2. Small nonspecific left ovarian cyst measuring up to 2.8 cm in size. OLOGY EXAM: CT ABDOMEN/PELVIS WITHOUT CONTRAST, 08/25/2022 17:56 PM COMPARISON: No prior studies available for comparison. CLINICAL INDICATIONS: r/o left sided kidney stone; TECHNIQUE: CT scanning of the abdomen and pelvis was performed without the administration of intravenous contrast. PROTOCOL: CT stone study: CT images of the abdomen and pelvis were performed from the top of the kidneys to the ischial tuberosities without the administration of oral and intravenous contrast. CONTRAST: FINDINGS: Lung Bases: The visualized lung bases and lower mediastinal structures are unremarkable. ABDOMEN Assessment for lesions in solid intra-abdominal organs is limited without IV contrast. Liver: Partially visualized liver is normal in noncontrast appearance. Biliary/Gallbladder : The gallbladder is normal without evidence of radiopaque stones. The biliary tree is nondilated. Spleen: Spleen is normal in size and CT density. Pancreas: Pancreas is normal. There is no evidence of pancreatic mass or peripancreatic fluid. Adrenals: Adrenal glands are unremarkable. Kidneys: Kidneys are normal in size. No hydronephrosis. Small 4 mm nonobstructing stone in the inferior pole the left kidney (coronal image 84). Few punctate nonobstructing stones in the right kidney as well. No hydroureteronephros is. No ureteral calculi. Retroperitoneal/Vas culature: No retroperitoneal adenopathy is identified. Gastrointestinal/Me sentery: No abnormally dilated colon or small bowel. Normal appendix. No ascites or free intraperitoneal air. PELVIS Bladder: The bladder is normal. Genital: Small nonspecific left ovarian cyst, measuring 2.8 x 2.3 cm. Uterus is unremarkable. Bony Structures: Visualized bony structures are consistent with the patient's age. RADIOLOGY Omari Lal MD - 08/25/2022 EXAM: CT ABDOMEN/PELVIS WITHOUT CONTRAST, 08/25/2022 17:56 PM COMPARISON: No prior studies available for comparison. CLINICAL INDICATIONS: r/o left sided kidney stone; TECHNIQUE: CT scanning of the abdomen and pelvis was performed without the administration of intravenous contrast. PROTOCOL: CT stone study: CT images of the abdomen and pelvis were performed from the top of the kidneys to the ischial tuberosities without the administration of oral and intravenous contrast. CONTRAST: FINDINGS: Lung Bases: The visualized lung bases and lower mediastinal structures are unremarkable. ABDOMEN Assessment for lesions in solid intra-abdominal organs is limited without IV contrast. Liver: Partially visualized liver is normal in noncontrast appearance. Biliary/Gallbladder : The gallbladder is normal without evidence of radiopaque stones. The biliary tree is nondilated. Spleen: Spleen is normal in size and CT density. Pancreas: Pancreas is normal. There is no evidence of pancreatic mass or peripancreatic fluid. Adrenals: Adrenal glands are unremarkable. Kidneys: Kidneys are normal in size. No hydronephrosis. Small 4 mm nonobstructing stone in the inferior pole the left kidney (coronal image 84). Few punctate nonobstructing stones in the right kidney as well. No hydroureteronephros is. No ureteral calculi. Retroperitoneal/Vas culature: No retroperitoneal adenopathy is identified. Gastrointestinal/Me sentery: No abnormally dilated colon or small bowel. Normal appendix. No ascites or free intraperitoneal air. PELVIS Bladder: The bladder is normal. Genital: Small nonspecific left ovarian cyst, measuring 2.8 x 2.3 cm. Uterus is unremarkable. Bony Structures: Visualized bony structures are consistent with the patient's age. IMPRESSION IMPRESSION: 1. Bilateral small nonobstructing renal calculi. No obstructing stones. No hydronephrosis. 2. Small nonspecific left ovarian cyst measuring up to 2.8 cm in size. [facility] Radiology Study observation (narrative) [facility] CT Abdomen and Pelvis WO con trastOrdered By: Omari Lal on 08-25-2022 [facility] Work Phone: HCG ( test) QlOrder ed By: Art Ortiz on 08-25-2022 HCG.beta subunit [Moles/Vol] mIU/mL [facility] Comment on above: Non-: <10 mI U/mL Postmenopause: <10 mIU/mL Male: <10 mIU/mL FEMALE GESTATIONAL AGE 2-4 Weeks: 39.1-8,388 mIU/mL 5-6 Weeks: 861-88,769 mIU/mL 6-8 Weeks: 8,636-218,085 mIU/mL 8-10 Weeks: 18,700-244,467 mIU/mL 10-12 Weeks: 23,143-181,899 mIU/mL 13-27 Weeks: 6,303-97,171 mIU/mL 24-40 Weeks: 4,360-74,883 mIU/mL Test results cannot be interpreted as absolute evidence for the presence or absence of malignant disease. [facility] No Panel Informationon 08-25 [facility] URINALYSIS REFLEX TO CULTURE PERFORMABLEOrdered By: Hernandez Ferrer on 08-25-2022 Appearance (U) Clear Clear [facility] Bacteria LM Ql (Urine sed) PRESENT Abnormal ABSENT [facility] Color (U) Yellow Yellow U [facility] Epithelial cells.squamous LM Ql (Urine sed) 2-5/hpf = 2+ 1/hpf = 1+, 2-5/hpf = 2+, 0/hpf = 0+, ABSENT [facility] Glucose Test strip (U) [Mass/Vol] Negative Negative [facility] Interpretation and review of laboratory results Abnormal [facility] Ketones (U) [Mass/Vol] 15 mg/dL = Small Abnormal Negativ e [facility] Leukocyte esterase Test strip Ql (U) Small Abnormal Negative [facility] Nitrite Ql (U) Negative Negative [facility] pH (U) 7.0 [pH] 5.0 - 7.0 [facility] Protein (U) [Mass/Vol] 30 mg/dL Abnormal Negative [facility] RBC (U) [#/Vol] Moderate Abnormal Negative [facility] RBC LM.HPF (Urine sed) [#/Area] 3-5 Abnormal [facility] Specific gravity (U) [Rel density] 1.020 1.001 - PINF [facility] Urobilinogen (U) [Mass/Vol] 1.0 E.U./dL 0.2 E.U/dL, 1.0 E.U/dL [facility] WBC LM.HPF (Urine sed) [#/Area] 6-9 Abnormal [facility] CBC AUTO DIFFon 06-25-2021 BASO # 0.0 103/ul Normal 0.0-0.1 [facility] Comment on above: Performed By: #### C BC #### [facility] [address] [address] [address] Ban Samuels Basophils/100 WBC (Bld) 0.2 % Normal 0.2-2.0 [facility] Comment on above: Performed By: #### C BC #### [facility] [address] [place] [address] Dr. Ban Samuels EO # 0.0 103/ul Normal 0.0-0.7 [facility] Comment on above: Performed By: #### C BC #### [facility] [address] [place] [address] Dr. Ban Samuels Eosinophils/100 WBC (Bld) 0.7 % Critically low 0.9-7.0 [facility] Comment on above: Performed By: #### C BC #### [facility] [address] [place] [address] Dr. Ban Samuels Erythrocyte distribution width (RBC) [Ratio] 12.0 % Normal 11.0-15.0 [facility] Comment on above: Performed By: #### C BC #### [facility] [address] [place] [address] Dr. Ban Samuels Hematocrit (Bld) [Volume fraction] 38.8 % Normal 36.0-48.0 [facility] Comment on above: Performed By: #### C BC #### [facility] [address] [place] [address] Dr. Ban Samuels Hemoglobin (Bld) [Mass/Vol] 13.1 g/dL Normal 12.0-16.0 [facility] Comment on above: Performed By: #### C BC #### [facility] [address] [place] [address] Dr. Ban Samuels IG # 0.01 10e3/ul Normal 0.00-0.03 [facility] Comment on above: Performed By: #### C BC #### [facility] [address] [place] [address] Dr. Ban Samuels IG % 0.2 % Normal 0.0-0.5 [facility] Comment on above: Performed By: #### C BC #### [facility] [address] [place] [address] Dr. Ban Samuels LYMPH # 2.2 103/ul Normal 1.2-3.8 [facility] Comment on above: Performed By: #### C BC #### [facility] [address] [place] [address] Dr. Ban Samuels Lymphocytes/100 WBC (Bld) 37.6 % Normal 20.5-60.0 [facility] Comment on above: Performed By: #### C BC #### [facility] [address] [place] [address] Dr. Ban Samuels MANUAL DIFF REQ NO Normal [facility] Comment on above: Performed By: #### C BC #### [facility] [address] [place] [address] Dr. Ban Samuels MCH (RBC) [Entitic mass] 31.8 pg Normal 26.7-34.0 [facility] Comment on above: Performed By: #### C BC #### [facility] [address] [place] [address] Dr. Ban Samuels MCHC (RBC) [Mass/Vol] 33.8 g/dL Normal 29.9-35.2 [facility] Comment on above: Performed By: #### C BC #### [facility] [address] [place] [address] Dr. Ban Samuels MCV (RBC) [Entitic vol] 94.2 fL Normal 81.0-99.0 [facility] Comment on above: Performed By: #### C BC #### [facility] [address] [place] [address] Dr. Ban Samuels MONO # 0.2 103/ul Critically low 0.3-0.8 [facility] Comment on above: Performed By: #### C BC #### [facility] [address] [place] [address] Dr. Ban Samuels Monocytes/100 WBC (Bld) 3.2 % Normal 1.7-12.0 [facility] Comment on above: Performed By: #### C BC #### [facility] [address] [place] [address] Dr. Ban Samuels NEUT # 3.4 103/ul Normal 1.4-6.5 [facility] Comment on above: Performed By: #### C BC #### [facility] [address] [place] [address] Dr. Ban Samuels Neutrophils/100 WBC (Bld) 58.1 % Normal 43.0-75.0 [facility] Comment on above: Performed By: #### C BC #### [facility] [address] [place] [address] Dr. Ban Samuels Platelet mean volume (Bld) [Entitic vol] 10.6 fL Normal 9.5-13.5 [facility] Comment on above: Performed By: #### C BC #### [facility] [address] [place] [address] Dr. Ban Samuels PLT 219 103/ul Normal 150-450 [facility] Comment on above: Performed By: #### C BC #### [facility] [address] [place] [address] Dr. Ban Samuels RBC 4.12 106/ul Critically low 4.20-5.40 [facility] Comment on above: Performed By: #### C BC #### [facility] [address] [place] [address] Dr. Ban Samuels WBC 5.9 103/ul Normal 4.0-11.0 [facility] Comment on above: Performed By: #### C BC #### [facility] [address] [place] [address] Dr. Ban Samuels ER URINE PROFILEon 2 Bilirubin Ql (U) Negative Normal NEGATIVE [facility] Comment on above: Performed By: #### U MICRO, ERUR #### [facility] [address] [place] [address] Dr. Ban Samuels Clarity (U) SL CLOUDY Abnormal CLEAR [facility] Comment on above: Performed By: #### U MICRO, ERUR #### [facility] [address] [place] [address] Dr. Ban Samuels Color (U) YELLOW Normal YELLOW [facility] Comment on above: Performed By: #### U MICRO, ERUR #### [facility] [address] [place] [address] Dr. Ban Samuels ERUAHD A micrscopic examination will be performed if indicated. Normal [facility] Comment on above: Performed By: #### U MICRO, ERUR #### [facility] [address] [address] [address] Ban Samuels Glucose Ql (U) Negative Normal NEGATIVE [facility] Comment on above: Performed By: #### U MICRO, ERUR #### [facility] [address] [address] [address] Ban Samuels Hemoglobin Ql (U) SMALL Abnormal NEGATIVE [facility] Comment on above: Performed By: #### U MICRO, ERUR #### [facility] [address] [address] [address] Ban Samuels Ketones Ql (U) Negative Normal NEGATIVE [facility] Comment on above: Performed By: #### U MICRO, ERUR #### [facility] [address] [place] [address] Dr. Ban Samuels LEUKOCYTES Negative Normal NEGATIVE [facility] Comment on above: Performed By: #### U MICRO, ERUR #### [facility] [address] [address] [address] Ban Samuels Nitrite Ql (U) Negative Normal NEGATIVE [facility] Comment on above: Performed By: #### U MICRO, ERUR #### [facility] [address] [address] [address] Ban Samuels pH (U) 6.0 [pH] Normal 5-9 [facility] Comment on above: Performed By: #### U MICRO, ERUR #### [facility] [address] [address] [address] Ban Samuels SPEC GRAVITY >=1.030 Abnormal 1.005-<=1.025 [facility] Comment on above: Performed By: #### U MICRO, ERUR #### [facility] [address] [address] [address] Ban Samuels UA PROTEIN TRACE Normal NEGATIVE/ TRACE [facility] Comment on above: Performed By: #### U MICRO, ERUR #### [facility] [address] [address] [address] Ban Samuels UR MICRO IND INDICATED Normal [facility] Comment on above: Performed By: #### U MICRO, ERUR #### [facility] [address] [address] [address] Ban Samuels Urobilinogen Qn (U) 0.2 {Emerald'U}/dL Normal 0.2 - 1. 0 [facility] Comment on above: Performed By: #### U MICRO, ERUR #### [facility] [address] [address] [address] Ban Samuels Glucose - FINGER STICKon Glucose [Mass/Vol] 98 mg/dL [employer] Other PROF CHEM 8 (BAS METB)on Anion gap [Moles/Vol] 11.2 mmol/L Normal [facility] Comment on above: Performed By: #### B MP, TSH #### [facility] [address] [place] [address] Dr. Ban Samuels Calcium [Mass/Vol] 9.5 mg/dL Normal 8.4-10.2 [facility] Comment on above: Performed By: #### B MP, TSH #### [facility] [address] [address] [address] Ban Samuels Chloride [Moles/Vol] 107 mmol/L Normal 98-107 [facility] Comment on above: Performed By: #### B MP, TSH #### [facility] [address] [address] [address] Ban Samuels CO2 [Moles/Vol] 25.7 mmol/L Normal 22.0-30.0 [facility] Comment on above: Performed By: #### B MP, TSH #### [facility] [address] [address] [address] Ban Samuels Creatinine [Mass/Vol] 0.75 mg/dL Normal 0.52-1.04 [facility] Comment on above: Performed By: #### B MP, TSH #### [facility] [address] [place] [address] Dr. Ban Samuels EGFR-AF DJIBOUTIAN >60 Normal >=60 [facility] Comment on above: Performed By: #### B MP, TSH #### [facility] [address] [address] [address] Ban Samuels EGFR-NON AF DJIBOUTIAN >60 Normal >=60 [facility] Comment on above: Performed By: #### B MP, TSH #### [facility] [address] [address] [address] Ban Samuels Glucose [Mass/Vol] 121 mg/dL Critically high 74-106 [facility] Comment on above: Performed By: #### B MP, TSH #### [facility] [address] [address] [address] Ban Samuels Potassium [Moles/Vol] 3.9 mmol/L Normal 3.4-5.0 [facility] Comment on above: Performed By: #### B MP, TSH #### [facility] [address] [address] [address] Ban Samuels Sodium [Moles/Vol] 140 mmol/L Normal 137-145 [facility] Comment on above: Performed By: #### B MP, TSH #### [facility] [address] [address] [address] Ban Samuels Urea nitrogen [Mass/Vol] 10.0 mg/dL Normal 6.4-19.3 [facility] Comment on above: Performed By: #### B MP, TSH #### [facility] [address] [address] [address] Ban Samuels Urea nitrogen/Creatinine [Mass ratio] 13.3 mg/mg Normal [facility] Comment on above: Performed By: #### B MP, TSH #### [facility] [address] [address] [address] Ban Samuels Test, Urineon 06-15 Beta HCG ( test) Ql (U) Negative [employer] Other TSHon 06-25-2021 TSH 1.179 uIU/mL Normal 0.430-3.750 [facility] Comment on above: Performed By: #### B MP, TSH #### [facility] [address] [place] [address] Dr. Ban Samuels TSH RANGE SEE BELOW Normal [facility] Comment on above: Result Comment: <0.3 4 UIU/ml HYPERTHYROID 0.34-5.60 UIU/ml EUTHYROID >5.60 UIU/ml HYPOTHYROID Performed By: #### B MP, TSH #### [facility] [address] [place] [address] Dr. Ban Samuels URINE MICROSCOPIC ONLYon BACTERIA TRACE Abnormal NONE SEEN [facility] Comment on above: Performed By: #### U MICRO, ERUR #### [facility] [address] [place] [address] Dr. Ban Samuels Bacteria identified Cx Nom (U) NOT INDICATED Normal [facility] Comment on above: Performed By: #### U MICRO, ERUR #### [facility] [address] [place] [address] Dr. Ban Samuels CA OX CRYSTALS RARE Normal [facility] Comment on above: Performed By: #### U MICRO, ERUR #### [facility] [address] [place] [address] Dr. Ban Samuels CAST NONE SEEN Normal NONE SEEN [facility] Comment on above: Performed By: #### U MICRO, ERUR #### [facility] [address] [place] [address] Dr. Ban Samuels Crystals LM Nom (Urine sed) SEEN Abnormal NONE SEEN [facility] Comment on above: Performed By: #### U MICRO, ERUR #### [facility] [address] [place] [address] Dr. Ban Samuels Epithelial cells LM Ql (Urine sed) FEW Abnormal NONE SEEN /RARE [facility] Comment on above: Performed By: #### U MICRO, ERUR #### [facility] [address] [place] [address] Dr. Ban Samuels MUCOUS SMALL Abnormal NONE SEEN [facility] Comment on above: Performed By: #### U MICRO, ERUR #### [facility] [address] [place] [address] Dr. Ban Samuels RBC 10-20 Abnormal 0-2 [facility] Comment on above: Performed By: #### U MICRO, ERUR #### [facility] [address] [place], [place] [address] Dr. Ban Samuels WBC 0-2 Abnormal NONE SEEN [facility] Comment on above: Performed By: #### U MICRO, ERUR #### [facility] [address] [place], [place] [address] Dr. Ban Samuels Covid-19 PCR ([facility])on SARS-CoV-2 (COVID-19) RNA ABIMAEL+probe Ql (Unsp spec) Not detected Normal NOT DETECTED [facility] Comment on above: Result Comment: This test is not yet approved or cleared by the [place] FDA. When there are no FDA-approved or cleared tests available, and other criteria are met, FDA can make tests available under an emergency access mechanism called an Emergency Use Authorization (EUA). The EUA for this test is supported by the [place] of Health and Human Service's (HHS's) declaration that circumstances exist to justify the emergency use of in vitro diagnostics for the detection and/or diagnosis of the virus that causes COVID-19. This EUA will remain in effect (meaning this test can be used) for the duration of the COVID-19 declaration justifying emergency of IVDs, unless it is terminated or revoked by FDA (after which the test may no longer be used). When diagnostic testing is negative, the possibility of a false negative should be considered in the context of a patient's recent exposures and the presence of clinical signs and symptoms consistent with SARS-CoV-2. Performed By: #### C VDTBH #### [facility] [address] [place], [place] [address] Patriciocathleen Coronadoen Vital Signs Date Time Vital Sign Value Performing Clinician Facility 09-19-2024 09:00-0400 Body mass index (BMI) [Ratio] 26.12 kg/m2 Nancy Alvarenga [employer] Work Phone: [facility] 09-19-2024 09:00-0400 Body weight 73.39 kg Nancy Alvarenga NP Work Phone: [facility] 09-19-2024 09:00-0400 Diastolic blood pressure 80 mm[Hg] Nancy Ochoaman [employer]IATE Work Phone: [facility] 09-19-2024 09:00-0400 Heart rate 68 /min Nancy Ochoaman [employer] ASS[employer]IATE Work Phone: [facility] 09-19-2024 09:00-0400 Systolic blood pressure 118 mm[Hg] Nancy [employer] COMM[employer]ITY SUPPORT ASSOCIATE Work Phone: [facility] 03-19-2024 11:08-0500 Body height 167.6 cm Mansi Contreras MD Work Phone: [facility] 03-19-2024 11:08-0500 Body mass index (BMI) [Ratio] 26.71 kg/m2 Mansi Contreras MD Work Phone: [facility] 03-19-2024 11:08-0500 Body temperature 97.9 [degF] Mansi Contreras MD Work Phone: [facility] 03-19-2024 11:08-0500 Body weight 75.07 kg Mansi Contreras MD Work Phone: [facility] 03-19-2024 11:08-0500 Diastolic blood pressure 70 mm[Hg] Mansi Contreras MD Work Phone: [facility] 03-19-2024 11:08-0500 Heart rate 92 /min Mansi Contreras MD Work Phone: [facility] 03-19-2024 11:08-0500 Respiratory rate 16 /min Mansi Contreras MD Work Phone: [facility] 03-19-2024 11:08-0500 Systolic blood pressure 110 mm[Hg] Mansi Contreras MD Work Phone: [facility] 01-08-2024 15:39-0400 Body height 167.6 cm Mansi Terrazas MD Work Phone: [facility] 01-08-2024 15:39-0400 Body mass index (BMI) [Ratio] 26.79 kg/m2 Mansi Terrazas MD Work Phone: [facility] 01-08-2024 15:39-0400 Body weight 75.3 kg Mansi Terrazas MD Work Phone: [facility] 01-08-2024 15:39-0400 Diastolic blood pressure 69 mm[Hg] Mansi Terrazas MD Work Phone: [facility] 01-08-2024 15:39-0400 Heart rate 105 /min Mansi Terrazas MD Work Phone: [facility] 01-08-2024 15:39-0400 Systolic blood pressure 104 mm[Hg] Mansi Terrazas MD Work Phone: [facility] 11-14-2023 12:56-0400 Body height 167.6 cm Mansi Contreras MD Work Phone: [facility] 11-14-2023 12:56-0400 Body mass index (BMI) [Ratio] 26.87 kg/m2 Mansi Contreras MD Work Phone: [facility] 11-14-2023 12:56-0400 Body weight 75.52 kg Mansi Contreras MD Work Phone: [facility] 11-14-2023 12:56-0400 Diastolic blood pressure 70 mm[Hg] Mansi Contreras MD Work Phone: [facility] 11-14-2023 12:56-0400 Heart rate 72 /min Mansi Contreras MD Work Phone: [facility] 11-14-2023 12:56-0400 Respiratory rate 16 /min Mansi Contreras MD Work Phone: [facility] 11-14-2023 12:56-0400 Systolic blood pressure 116 mm[Hg] Mansi Contreras MD Work Phone: [facility] 03-28-2023 12:05-0500 Body height 167.6 cm Spencer Ibrahim PA-C Work Phone: [facility] 11-14-2023 12:05-0500 Body mass index (BMI) [Ratio] 24.21 kg/m2 Spencer Ibrahim PA-C Work Phone: [facility] 03-28-2023 12:05-0500 Body temperature 98.2 [degF] Spencer Ibrahim PA-C Work Phone: [facility] 03-28-2023 12:05-0500 Body weight 68.04 kg Spencer Ibrahim PA-C Work Phone: [facility] 03-28-2023 12:05-0500 Diastolic blood pressure 83 mm[Hg] Spencer Ibrahim PA-C Work Phone: [facility] 03-28-2023 12:05-0500 Heart rate 98 /min Spencer Ibrahim PA-C Work Phone: [facility] 03-28-2023 12:05-0500 Respiratory rate 16 /min Spencer Ibrahim PA-C Work Phone: [facility] 03-28-2023 12:05-0500 SaO2% (BldA) [Mass fraction] 98 % Spencer Ibrahim PA-C Work Phone: [facility] 03-28-2023 12:05-0500 Systolic blood pressure 123 mm[Hg] Spencer Ibrahim PA-C Work Phone: [facility] 09-15-2022 18:20-0400 Body height 167.64 cm Yoanna Anthony Other [employer] Other 09-15-2022 18:20-0400 Body mass index (BMI) [Ratio] 24.21 kg/m2 Yoanna Anthony Other [facility] Other 09-15-2022 18:20-0400 Body temperature 99.5 [degF] Yoanna Anthony Other [facility] Other 09-15-2022 18:20-0400 Body weight 68.04 kg Yoanna Anthony Other [facility] Other 09-15-2022 18:20-0400 Respiratory rate 18 /min Yoanna Anthony Other [facility] Other 09-15-2022 18:20-0400 SaO2% (BldA) [Mass fraction] 99 % Yoanna Anthony Other [facility] Other 08-25-2022 19:17-0400 Body temperature 98.1 [degF] Eliecer Leahy MD Work Phone: [facility] 08-25-2022 19:17-0400 Diastolic blood pressure 74 mm[Hg] Eliecer Leahy MD Work Phone: [facility] 08-25-2022 19:17-0400 Heart rate 98 /min Eliecer Leahy MD Work Phone: [facility] 08-25-2022 19:17-0400 Respiratory rate 19 /min Eliecer Leahy MD Work Phone: [facility] 08-25-2022 19:17-0400 Systolic blood pressure 103 mm[Hg] Eliecer Leahy MD Work Phone: [facility] 08-25-2022 16:09-0400 Body height 167.6 cm Eliecer Leahy MD Work Phone: [facility] 08-25-2022 16:09-0400 SaO2% (BldA) [Mass fraction] 99 % Eliecer Leahy MD Work Phone: [facility] 06-25-2021 15:00-0500 Body height 167.64 cm Akila Zelaya Other [facility] Other 06-25-2021 15:00-0500 Body mass index (BMI) [Ratio] 24.21 kg/m2 Akila Zelaya Other [facility] Other 06-25-2021 15:00-0500 Body temperature 97.3 [degF] Akila Zelaya Other [facility] Other 06-25-2021 15:00-0500 Body weight 68.04 kg Akila Zelaya Other [facility] Other 06-25-2021 15:00-0500 Diastolic blood pressure 80 mm[Hg] Akila Cejamond Other [facility] Other 06-25-2021 15:00-0500 Respiratory rate 18 /min Akila Zelaya Other [facility] Other 06-25-2021 15:00-0500 SaO2% (BldA) [Mass fraction] 98 % Akila Zelaya Other [facility] Other 06-25-2021 15:00-0500 Systolic blood pressure 125 mm[Hg] Akila Zelaya Other [facility] Other 03-29-2021 10:25-0500 Body height 167.64 cm Adina Mike Other [facility] Other 03-29-2021 10:25-0500 Body mass index (BMI) [Ratio] 24.37 kg/m2 Adina Mckeon Other [facility] Other 03-29-2021 10:25-0500 Body temperature 98.1 [degF] Adina Mckeon Other [facility] Other 03-29-2021 10:25-0500 Body weight 68.49 kg Adina cMkeon Other [facility] Other 03-29-2021 10:25-0500 Diastolic blood pressure 78 mm[Hg] Adina Mckeon Other [facility] Other 03-29-2021 10:25-0500 Respiratory rate 18 /min Adina Mckeon Other [facility] Other 03-29-2021 10:25-0500 SaO2% (BldA) [Mass fraction] 99 % Adina Mckeon Other [facility] Other 03-29-2021 10:25-0500 Systolic blood pressure 128 mm[Hg] Adina Mckeon Other [employer] Other Encounters Encounter Date Encounter Type Care Provider Facility Start: 01-28-2025 End: 01-28-2025 Chiboo flowsheet Clarita VARGAS Work Phone: [facility] Start: 01-28-2025 End: 01-28-2025 Bamboo flowsheet Clarita VARGAS Work Phone: [facility] Start: 01-06-2025 End: 01-06-2025 Patient encounter status Petty Friedman MD Work Phone: [facility] Start: 01-06-2025 End: 01-06-2025 Refill Petty Friedman MD Work Phone: [facility] Comment on above: Wellness examination ; Other specified attention deficit hyperactivity disorder (ADHD) Start: 12-02-2024 End: 12-02-2024 Patient encounter status Petty Friedman MD Work Phone: [facility] Start: 12-02-2024 End: 12-02-2024 Refill Petty Friedman MD Work Phone: [facility] Comment on above: Wellness examination ; Other specified attention deficit hyperactivity disorder (ADHD) Start: 11-07-2024 End: 11-07-2024 ambulatory MATEO HURTADO [facility] Start: 11-07-2024 End: 11-07-2024 Subsequent hospital visit by physician MARY [facility] Start: 10-30-2024 End: 10-30-2024 Patient encounter status Nancy Alvarenga NP Work Phone: [facility] Start: 10-30-2024 End: 10-30-2024 Refill Nancy Alvarenga COMMUNITY SUPPORT ASSOCIATE Work Phone: [facility] Comment on above: Wellness examination ; Other specified attention deficit hyperactivity disorder (ADHD) Start: 09-19-2024 End: 09-19-2024 Bamboo flowsheet Nancy Alvarenga COMMUNITY SUPPORT ASSOCIATE Work Phone: [facility] Start: 09-19-2024 End: 09-19-2024 Bamboo flowsheet Nancy Alvarenga COMMUNITY SUPPORT ASSOCIATE Work Phone: [facility] Start: 09-19-2024 End: 09-19-2024 Initial preventive medicine new pt age 18-39yrs Nancy Alvarenga COMMUNITY SUPPORT ASSOCIATE Work Phone: [facility] Comment on above: Wellness examination (Primary Dx); Family history of thyroid disease; Encounter to establish care; Screening for deficiency anemia; Screening for cardiovascular condition; Screening for lipid disorders; Screening for thyroid disorder; Other specified attention deficit hyperactivity disorder (ADHD) (CMS/HCC); Acne vulgaris; Anxiety and depression (CMS/HCC) Start: 09-19-2024 End: 09-19-2024 Patient encounter status Nancy Alvarenga NP Work Phone: [facility] Start: 09-19-2024 End: 09-19-2024 ambulatory NANCY ALVARENGA Not Available Start: 08-20-2024 End: 08-20-2024 Orders Only Yary Cowart HOUSING ASSISTANT 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 Work Phone: [facility] Comment on above: Attention deficit hy peractivity disorder (ADHD), predominantly inattentive type Start: 07-16-2024 End: 07-16-2024 Refill Mansi Contreras MD Work Phone: [facility] Comment on above: Attention deficit hy peractivity disorder (ADHD), predominantly inattentive type Start: 06-12-2024 End: 06-13-2024 Refill Mansi Contreras MD Work Phone: [facility] Comment on above: Attention deficit hy peractivity disorder (ADHD), predominantly inattentive type Start: 04-08-2024 End: 04-08-2024 Refill Mansi Contreras MD Work Phone: [facility] Comment on above: Attention deficit hy peractivity disorder (ADHD), predominantly inattentive type Start: 03-19-2024 End: 03-19-2024 Office outpatient visit 15 minutes Mansi Contreras MD Work Phone: [facility] Comment on above: Pharyngitis, unspeci fied etiology (Primary Dx) Start: 03-19-2024 End: 03-19-2024 ambulatory MANSI CONTRERAS [facility] Start: 01-08-2024 End: 01-08-2024 Office outpatient visit 15 minutes Mansi Terrazas MD Work Phone: [facility] Comment on above: Kidney stone (Primar y Dx); Abnormal urinalysis Start: 01-08-2024 End: 01-08-2024 ambulatory MANSI TERRAZAS [facility] Start: 12-27-2023 End: 12-27-2023 Refill Mansi Contreras MD Work Phone: [facility] Comment on above: Attention deficit hy peractivity disorder (ADHD), predominantly inattentive type Start: 12-18-2023 End: 12-18-2023 ambulatory PRADIP FALLON Not Available Start: 11-22-2023 End: 11-22-2023 Telephone encounter Marilee Thompson LPN [facility] Start: 11-14-2023 End: 11-14-2023 Office outpatient visit 15 minutes Mansi Contreras MD Work Phone: [facility] Comment on above: Attention deficit hy peractivity disorder (ADHD), predominantly inattentive type Start: 11-14-2023 End: 11-14-2023 ambulatory MANSI CONTRERAS [facility] Start: 05-12-2023 Refill Mansi booth MD Work Phone: [facility] Comment on above: Attention deficit hy peractivity disorder (ADHD), predominantly inattentive type Start: 03-28-2023 End: 03-28-[address] [facility] Start: 03-28-2023 End: 03-28-2023 Office outpatient new 20 minutes Spencer Ibrahim PA-C Work Phone: [facility] Comment on above: Upper respiratory tr act infection, unspecified type (Primary Dx); Sore throat Start: 09-19-2022 End: 09-19-2022 ambulatory Yoanna Anthony Other [facility] Other Start: 09-19-2022 Telephone encounter Yoanna [facility] Start: 09-16-2022 End: 09-16-2022 ambulatory Yoanna Anthony Other [facility] Other Start: 09-16-2022 Telephone encounter Yoanna Anthony [facility] Start: 09-15-2022 End: 09-15-2022 ambulatory Yoanna Anthony [facility] Other Start: 09-15-2022 Office outpatient vi sit 15 minutes Yoanna Anthony [facility] Start: 08-25-2022 End: 08-25-2022 Emergency department patient visit Eliecer Leahy MD Work Phone: [facility] Start: 06-25-2021 End: 06-25-[address] RUTH ANN METCALF Facility: Start: 06-25-2021 Office outpatient vi sit 15 minutes Akila Zelaya [facility] Start: 03-29-2021 End: 03-29-2021 ambulatory Adina Mckeon Other [facility] [employer] Other Start: 03-29-2021 Office outpatient vi sit 15 minutes Adina Mckeon [facility] Start: 01-19-2021 End: 01-19-[address] [facility] Facility: Procedures Date Procedure Procedure Detail Performing Clinician Start: 09-19-2024 Comprehensive metabo lic panel Nancy Alvarenga COMMUNITY SUPPORT ASSOCIATE Work Phone: Start: 09-19-2024 Lipid panel Nancy Alvarenga COMMUNITY SUPPORT ASSOCIATE Work Phone: Start: 03-19-2024 Adult depression scr eening assessment Mansi Contreras MD Work Phone: Start: 01-08-2024 Follow-up visit Follow-up MANSI TERRAZAS Start: 11-14-2023 Adult depression scr eening assessment Mansi Contreras MD Work Phone: Start: 04-05-2023 Adult depression scr eening assessment Mansi Contreras MD Work Phone: Start: 03-28-2023 Iadna streptococcus group a amplified probe tq Spencer Ibrahim PA-C Work Phone: Start: 08-25-2022 Ct abdomen & pelvis w/o contrast material Eliecer Leahy MD Work Phone: Start: 08-25-2022 CBC AND ELECTRONIC DIFF Mary Carmen Alcocer MD Work Phone: Start: 08-25-2022 Complete blood count with white cell differential, automated Mary Carmen Alcocer MD Work Phone: Start: 08-25-2022 Gonadotropin chorion ic quantitative Eliecer Leahy MD Work Phone: Start: 08-25-2022 MINT GREEN TOP TUBE Mar kike Alcocer MD Work Phone: Start: 08-25-2022 Urnls dip stick/tabl et reagent auto microscopy Mary Carmen Alcocer MD Work Phone: Plan of Treatment Date Care Activity Detail Author Start: 04-16-2025 End: 04-16-2025 Patient encounter procedure 04/16/2025 2:30 PM EST [facility] [address] [place] [phone] Nancy Alvarenga NP [address] [place] [address] [facility] Start: 04-09-2025 End: 04-09-2025 Patient encounter procedure 04/09/2025 9:00 AM EST Office Visit [facility] [address] [place] [phone] Nancy Alvarenga NP [address] [place] [address] [facility] Start: 03-19-2025 Adult BMI Screening Adult BMI Screen ing [facility] Start: 03-19-2025 [facility] Start: 03-19-2025 Tobacco Screening Tobacco Screening [facility] Start: 01-28-2025 End: 01-28-2025 Patient encounter procedure ROXANNA [facility]WIS Comment on above: Arrived Start: 01-13-2025 Influenza vaccination P [facility] Start: 01-07-2025 Adult BMI Screening Adult BMI Screen ing [facility] Start: 01-07-2025 Tobacco Screening Tobacco Screening [facility] Start: 12-19-2024 End: 12-19-2024 Patient encounter procedure 12/19/2024 9:00 AM EDT Office Visit [facility] [address] [place] [place] [phone] Pradip Fallon DO [address] [place] [address] [facility] Start: 11-13-2024 Adult BMI Screening Adult BMI Screen ing [facility] Start: 11-13-2024 Depression Screening Depression Scre ening [facility] Start: 11-13-2024 Tobacco Screening Tobacco Screening [facility] Start: 10-02-2024 End: 10-02-2024 Patient encounter procedure 10/02/2024 8:30 AM EDT [facility] [address] [place] [phone] Wojciech Atwood MD [address] [place] [address] [facility] Start: 09-19-2024 End: 09-19-2024 Patient encounter procedure 09/19/2024 9:00 AM EDT Office Visit [facility] [address] [place] [phone] Nancy Alvarenga COMMUNITY SUPPORT ASSOCIATE [address] [place], [place] [id number] Arrived [facility] Comment on above: Arrived Start: 07-31-2024 DTaP,Tdap and Td Vaccines (7 - Td or Tdap) DTaP,Tdap and Td Vaccines (7 - Td or Tdap) [facility] Start: 07-31-2024 Tetanus vaccination [facility] Start: 04-05-2024 Adult BMI Screening Adult BMI Screen ing [facility] Start: 04-05-2024 Depression Screening Depression Scre ening [facility] Start: 04-05-2024 Tobacco Screening Tobacco Screening [facility] Start: 01-14-2024 COVID-19 Vaccine ( season) COVID-19 Vaccine ( season) [facility] Start: 01-14-2024 Influenza vaccination Influenza Vacc ine [facility] Start: 01-08-2024 End: 01-08-2024 Patient encounter procedure 01/08/2024 3:45 PM EDT Office Visit [facility] [address] [place] [address] Mansi Terrazas MD [address] [place] [address] [facility] Start: 01-08-2024 End: 01-07-2025 XR Abdomen AP [facility] Work Phone: Comment on above: Expected: 01/08/2024 , Expires: 01/07/2025 Start: 12-27-2023 End: 12-27-2023 Patient encounter procedure 12/27/2023 10:00 AM EDT Office Visit [facility] [address] [facility] [address] [place] [phone] Mansi Terrazas MD [address] [place] [address] [facility] Start: 07-29-2023 Screening for malign ant neoplasm of cervix Pap Smear [facility] Start: 01-13-2023 COVID-19 Vaccine () COVID-19 Vaccine () [facility] Start: 04-30-2021 COVID-19 VACCINE (4 - Booster for Pfizer series) COVID-19 VACCINE (4 - Booster for Pfizer series) [facility] Start: 12-01-2020 History and physical examination, annual for health maintenance Wellness Visit [facility] Start: 2020 Adult BMI Follow Up Plan Adult BMI Follow Up Plan [facility] Start: 2020 Hepatitis C screening Hepatitis C Sc reening [facility] Start: 2018 Screening for Chlamy alfredo trachomatis CHLAMYDIA SCREEN [facility] Start: 2017 HIV screening [facility] Start: 2014 Depression screening using PHQ-9 (Patient Health Questionnaire 9) score Depression Screening (PHQ-2/9) [facility] Start: 2002 Hepatitis C screening HEPATITI S C VIRUS SCREENING [facility] Start: 2002 Screening for Chlamy alfredo trachomatis [facility] Bacteria identified in Urine by Culture URINE CULTURE Microbiology STAT 08/25/2022 4:30 PM EDT [facility] EXTRA MICRO EXTRA MICRO Flui ds STAT 08/25/2022 4:30 PM EDT [facility] GOLD TOP TUBE GOLD TOP TUBE La b STAT 08/25/2022 4:30 PM EDT [facility] LAVENDER TOP TUBE LAVENDER TOP T UBE Lab STAT 08/25/2022 4:30 PM EDT [facility] LT BLUE TOP TUBE LT BLUE TOP TUB E Lab STAT 08/25/2022 4:30 PM EDT [facility] End: 11-07-2024 Quantiferon TB Gold [facility] Work Phone: Comment on above: Once for 1 Occurrenc es starting 11/07/2024 until 11/07/2024 RAINBOW DRAW RAINBOW DRAW Lab STAT 08/25/2022 4:30 PM EDT [facility] Work [facility]: URINALYSIS REFLEX TO CULTURE URINALYSIS REFLEX TO CULTURE Fluids STAT 08/25/2022 4:30 PM EDT [facility] Immunizations Immunization Date Immunization Notes Care Provider Vanessa berry 06-14-2024 influenza, injectabl e, madin evy canine kidney, preservative free Mansi Contreras MD Work Phone: [facility] 06-14-2024 influenza virus vacc ine, unspecified formulation Yary ATKINS Work Phone: [facility] 02-23-2023 influenza, injectabl e, quadrivalent, preservative free Mansi Contreras MD Work Phone: [facility] 02-23-2023 influenza virus vacc ine, unspecified formulation Mansi Contreras MD Work Phone: [facility] 02-22-2022 Influenza, injectabl e, Madin Evy Canine Kidney, preservative free, quadrivalent Mansi Contreras MD Work Phone: [facility] 04-30-2020 hepatitis A vaccine, pediatric/adolescent dosage, 2 dose schedule Mansi Contreras MD Work Phone: [facility] 04-30-2020 Human Papillomavirus 9-valent vaccine Mansi Contreras MD Work Phone: [facility] 12-30-2019 Human Papillomavirus 9-valent vaccine Mansi Contreras MD Work Phone: [facility] 10-29-2019 hepatitis A vaccine, adult dosage Mansi Contreras MD Work Phone: [facility] 10-29-2019 hepatitis A vaccine, pediatric/adolescent dosage, 2 dose schedule Mansi Contreras MD Work Phone: [facility] 10-29-2019 human papilloma viru s vaccine, quadrivalent Mansi Contreras MD Work Phone: [facility] 10-29-2019 Human Papillomavirus 9-valent vaccine Mansi Contreras MD Work Phone: [facility] 10-29-2019 meningococcal ACWY vaccine, unspecified formulation Mansi Contreras MD Work Phone: [facility] 10-29-2019 meningococcal oligosaccharide (groups A, C, Y and W-135) diphtheria toxoid conjugate vaccine (MCV4O) Mansi Contreras MD Work Phone: [facility] 07-31-2014 meningococcal ACWY vaccine, unspecified formulation Mansi Contreras MD Work Phone: [facility] 07-31-2014 meningococcal oligosaccharide (groups A, C, Y and W-135) diphtheria toxoid conjugate vaccine (MCV4O) Mansi Contreras MD Work Phone: [facility] 07-31-2014 tetanus toxoid, redu sabine diphtheria toxoid, and acellular pertussis vaccine, adsorbed Mansi Contreras MD Work Phone: [facility] 12-27-2007 diphtheria, tetanus toxoids and acellular pertussis vaccine Mansi Contreras MD Work Phone: [facility] 12-27-2007 poliovirus vaccine, inactivated Mansi Contreras MD Work Phone: [facility] 12-27-2007 varicella virus vaccine Fernando Contreras MD Work Phone: [facility] 01-26-2004 diphtheria, tetanus toxoids and acellular pertussis vaccine Mansi Contreras MD Work Phone: [facility] 01-26-2004 diphtheria, tetanus toxoids and acellular pertussis vaccine, unspecified formulation Mansi Contreras MD Work Phone: [facility] 01-26-2004 haemophilus influenz ae type b vaccine, conjugate unspecified formulation Mansi Contreras MD Work Phone: [facility] 01-26-2004 haemophilus influenz ae type b vaccine, PRP-T conjugate Mansi Contreras MD Work Phone: [facility] 01-26-2004 measles, mumps and rubella virus vaccine Mansi Contreras MD Work Phone: [facility] 11-04-2003 measles, mumps and rubella virus vaccine Mansi Contreras MD Work Phone: [facility] 08-09-2003 varicella virus vaccine Fernando Contreras MD Work Phone: [facility] 02-01-2003 diphtheria, tetanus toxoids and acellular pertussis vaccine Mansi Contreras MD Work Phone: [facility] 02-01-2003 DTaP-hepatitis B and poliovirus vaccine Mansi Contreras MD Work Phone: [facility] 02-01-2003 haemophilus influenz ae type b vaccine, conjugate unspecified formulation Mansi Contreras MD Work Phone: [facility] 02-01-2003 haemophilus influenz ae type b vaccine, PRP-T conjugate Mansi Contreras MD Work Phone: [facility] 02-01-2003 pneumococcal conjuga te vaccine, 7 valent Mansi Contreras MD Work Phone: [facility] 2002 diphtheria, tetanus toxoids and acellular pertussis vaccine Mansi Contreras MD Work Phone: [facility] 2002 diphtheria, tetanus toxoids and acellular pertussis vaccine, unspecified formulation Mansi Contreras MD Work Phone: [facility] 2002 haemophilus influenz ae type b vaccine, conjugate unspecified formulation Mansi Contreras MD Work Phone: [facility] 2002 haemophilus influenz ae type b vaccine, PRP-T conjugate Mansi Contreras MD Work Phone: [facility] 2002 hepatitis B vaccine, adult dosage Mansi Contreras MD Work Phone: [facility] 2002 hepatitis B vaccine, pediatric or pediatric/adolescent dosage Mansi Contreras MD Work Phone: [facility] 2002 pneumococcal conjuga te vaccine, 7 valent Mansi Contreras MD Work Phone: [facility] 2002 poliovirus vaccine, inactivated Mansi Contreras MD Work Phone: [facility] 2002 diphtheria, tetanus toxoids and acellular pertussis vaccine Mansi Contreras MD Work Phone: [facility] 2002 diphtheria, tetanus toxoids and acellular pertussis vaccine, unspecified formulation Mansi Contreras MD Work Phone: [facility] 2002 haemophilus influenz ae type b vaccine, conjugate unspecified formulation Mansi Contreras MD Work Phone: [facility] 2002 haemophilus influenz ae type b vaccine, PRP-T conjugate Mansi Contreras MD Work Phone: [facility] 2002 pneumococcal conjuga te vaccine, 7 valent Mansi Contreras MD Work Phone: [facility] 2002 poliovirus vaccine, inactivated Mansi Contreras MD Work Phone: [facility] 2002 hepatitis B vaccine, adult dosage Mansi Contreras MD Work Phone: [facility] 2002 hepatitis B vaccine, pediatric or pediatric/adolescent dosage Mansi Contreras MD Work Phone: [employer] Payers Date Payer Category Payer Commercial Managed C are - [employer] Member Subscriber Plan / Payer (Effective 2022-Present) Name: Janine Trinh Relation to Subscriber: Child Name: Rehana Vaca Date of : 1971 (Home) Address: [address] [place] [address] Payer ID: Not on file Type: Not on file Address: [place] [id number] 2022 [facility] [employer] [id number] 2022 Self-pay 2022 Unknown [id number] 2018 Unknown [id number] 2002 Unknown [id number]. 593 2002 Unknown [id number] 903 2002 Unknown [id number]. 1286 2002 Unknown [id number]. 1286 2002 Unknown [id number]. 1286 2002 Unknown [id number]. 1286 2002 Unknown [id number]. 1259 2002 Unknown [id number]. 1259 1969 Unknown [id number]. 593 1959 Unknown [id number] Unknown [id number] 531 Social History Date Type Detail Facility Start: 07-15-2021 End: 09-18-2024 Sex Assigned At [facility] Start: 08-25-2022 End: 12-22-2022 Tobacco smoking status NHIS Never smoked tobacco [facility] Start: 08-25-2022 End: 12-22-2022 Tobacco use and exposure Smokeless tobacco non-user [facility] Start: 08-25-2022 Alcohol intake Ex-drinker (finding) [facility] Start: 2002 Sex Assigned At Not on file [facility] Start: 08-15-2022 End: 08-25-2022 Exposure to SARS-CoV-2 (event) Not sure [facility] Start: 03-19-2024 End: 09-19-2024 Alcoholic beverage intake Current drinker of alcohol (finding) [facility] Start: 07-15-2021 End: 09-18-2024 History of Social function [facility] Do you belong to any clubs or organizations such as jehovah's witness groups, unions, fraternal or athletic groups, or school groups? No [facility] How often do you att end meetings of the clubs or organizations you belong to? Patient declined [facility] How often to you hav e a drink containing alcohol? Never [facility] Do you feel stress - tense, restless, nervous, or anxious, or unable to sleep at night because your mind is troubled all the time - these days [OSQ] Only a little [facility] Start: 07-15-2021 [email or web address] Start: 2002 Sex assigned at Female [facility] Start: 12-18-2014 End: 07-22-2019 Sex Female (finding) [facility] Start: 07-15-2021 Gender identity Identifies as female gender (finding) [facility] Start: 04-05-2023 Alcohol intake Current non-drinker of alcohol (finding) [facility] Start: 12-18-2023 Alcoholic beverage intake Lifetime non-drinker (finding) [facility] Are you now , , , , never or living with a partner? Never [facility] How often to you hav e a drink containing alcohol? 2-4 times a month [facility] How many standard dr inks containing alcohol do you have on a typical day? 3 or 4 [facility] How often do you hav e 6 or more drinks on 1 occasion? Less than monthly [facility] (I/We) worried wheth er (my/our) food would run out before (I/we) got money to buy more. Never true [facility] consumption unknown [facility] Medical Equipment Procedure Code Equipment Code Equipment Origin al Text Equipment Identifier Dates Stent Uret 6fr 26cm Pgtl Crv Tpr Tip Bldr Mrk Lp Lg Inr Lum Rpl [id number] - [id number] Start: 09-03-2021 Comment on above: Description: Stent a ttached to upper pelvis area with adhesive Clinical Notes 03-29-2021 to 01-06-2025 Telephone Encounter - Nancy Alvarenga NP - 01/06/2025 12:51 PM EDTTelephone Encounter - Nancy Alvarenga NP - 01/06/2025 12:51 PM EDTSmilana Alvarenga NP - 09/19/2024 9:00 AM EDTAttachments Note Date & Type Note Facility 01-06-2025 Telephone encount er Note OARRS reviewed, no red flags, rx sent. [facility] 01-06-2025 Miscellaneous Notes Formattin g of this note might be different from the original. OARRS reviewed, no red flags, rx sent. documented in this encounter [facility] 10-30-2024 Telephone encount er Note [facility] 10-30-2024 Telephone encount er Note rx [facility] 10-30-2024 Miscellaneous Notes Formattin g of this note might be different from the original. rx documented in this encounter [facility] 09-19-2024 History of Presen t illness Narrative Images from the original note were not included. Janine Trinh is a 24 y.o. female presents with chief complaint of Establish Care HPI: HPI History of Present Illness Patient presents to the office today to establish care and wellness. Previously saw Dr. Contreras. She has been taking adderall for the last 4 years for ADHD, 15mg daily. Denies SE of medication or concerns. Having bowel movements every 3 days. Straining at times, will have blood when stool is hard. She has been trying to increase fiber in diet and fiber supplements. She does see Dr. Fallon routinely. Menses are normal, every month. She is thinking of getting off of control. Seeing derm routinely, taking clindamycin for acne. She does see urology for kidney stones. UTD on dental and vision exams. Doing counseling once a month for anxiety and depression. Denies concerns. SUBJECTIVE: MEDICATIONS: Current Outpatient Medications Medication Instructions amphetamine-dextroamphetamine (Adderall) 15 MG tablet 15 mg, Oral, Daily clindamycin (Clindagel) 1 % gel 1 application , Daily levocetirizine (Xyzal) 5 MG tablet Every evening norgestrel-ethinyl estradiol (Low-osgestrel,Cryselle) 0.3-30 MG-MCG tablet 1 tablet, Oral, Daily ALLERGIES: No Known Allergies History: Past Medical History: Diagnosis Date Allergies Anxiety Asthma Athletic Asthma Depression (CMS/HCC) Urinary tract infection Past Surgical History: Procedure Laterality Date KIDNEY STONE SURGERY [place] TONSILLECTOMY & ADENOIDECTOMY AGE 14/> WISDOM TOOTH EXTRACTION Family History Problem Relation Name Age of Onset Stroke Other Grandparent Neuroblastoma Other Grandparent Hypertension Other Grandparent Stroke Maternal Grandmother Drea hummel Cancer Maternal Grandmother Drea hummel Cancer Paternal Grandmother Petty Trinh Social History Socioeconomic History Marital status: Unmarried Spouse name: Not on file Number of children: Not on file Years of education: Not on file Highest education level: Not on file Occupational History Not on file Tobacco Use Smoking status: Never Smokeless tobacco: Never Vaping Use Vaping status: Never Used Substance and Sexual Activity Alcohol use: Yes Alcohol/week: 2.0 standard drinks of alcohol Types: 2 Glasses of wine per week Drug use: Never Sexual activity: Yes Partners: Male control/protection: Condom Male, Other Comment: The pill Other Topics Concern Not on file Social History Narrative Not on file Social Drivers of Health Financial Resource Strain: Low Risk (09/18/2024) Overall Financial Resource Strain (CARDIA) Difficulty of Paying Living Expenses: Not hard at all Food Insecurity: No Food Insecurity (09/18/2024) Hunger Vital Sign Worried About Running Out of Food in the Last Year: Never true Ran Out of Food in the Last Year: Never true Transportation Needs: No Transportation Needs (09/18/2024) PRAPARE - Transportation Lack of Transportation (Medical): No Lack of Transportation (Non-Medical): No Physical Activity: Sufficiently Active (09/18/2024) Exercise Vital Sign Days of Exercise per Week: 3 days Minutes of Exercise per Session: 60 min Stress: No Stress Concern Present (09/18/2024) [employer] - Occupational Stress Questionnaire Feeling of Stress : Only a little Social Connections: Moderately Isolated (09/18/2024) Social Connection and Isolation Panel [NHANES] Frequency of Communication with Friends and Family: More than three times a week Frequency of Social Gatherings with Friends and Family: Once a week Attends Confucianist Services: 1 to 4 times per year Active Member of Clubs or Organizations: No Attends Club or Organization Meetings: Never Marital Status: Never Intimate Partner Violence: Not At Risk (09/18/2024) Humiliation, Afraid, Rape, and Kick questionnaire Fear of Current or Ex-Partner: No Emotionally Abused: No Physically Abused: No Sexually Abused: No Housing Stability: Low Risk (09/18/2024) Housing Stability Vital Sign Unable to Pay for Housing in the Last Year: No Number of Times Moved in the Last Year: 1 Homeless in the Last Year: No I have reviewed and reconciled the history and medication list with the patient today. REVIEW OF SYMPTOMS: Review of Systems Constitutional: Negative for activity change, appetite change and fatigue. HENT: Negative. Respiratory: Negative for cough, shortness of breath and wheezing. Cardiovascular: Negative for chest pain and palpitations. Gastrointestinal: Negative for abdominal pain, diarrhea and nausea. Genitourinary: Negative. Musculoskeletal: Negative. Skin: Negative for color change, rash and wound. Psychiatric/Behavioral: Negative. OBJECTIVE: Results 12/08/2022 10:43 AM 12/22/2022 1:36 PM 02/23/2023 1:51 PM 07/25/2023 3:24 PM 09/12/2023 10:33 AM 12/18/2023 10:51 AM 09/19/2024 9:00 AM Vitals BMI 26.92 kg/m2 25.82 kg/m2 25.82 kg/m2 25.82 kg/m2 26.86 kg/m2 26.79 kg/m2 26.12 kg/m2 BSA (m2) 1.88 m2 1.84 m2 1.84 m2 1.84 m2 1.88 m2 1.87 m2 1.85 m2 Systolic 112 110 118 118 Diastolic 70 70 70 80 Heart Rate 68 Height (in) 5' 6 5' 6 5' 6 Weight (lb) 166.8 160 160 160 166.4 166 161.8 Visit Report Report Report Report Report Report Physical Exam Vitals reviewed. Constitutional: General: She is not in acute distress. Appearance: Normal appearance. She is not ill-appearing. HENT: Head: Normocephalic and atraumatic. Right Ear: Tympanic membrane, ear canal and external ear normal. Left Ear: Tympanic membrane, ear canal and external ear normal. Nose: Nose normal. No congestion or rhinorrhea. Mouth/Throat: Mouth: Mucous membranes are moist. Pharynx: Oropharynx is clear. No oropharyngeal exudate. Eyes: Extraocular Movements: Extraocular movements intact. Conjunctiva/sclera: Conjunctivae normal. Pupils: Pupils are equal, round, and reactive to light. Cardiovascular: Rate and Rhythm: Normal rate and regular rhythm. Heart sounds: No murmur heard. Pulmonary: Effort: Pulmonary effort is normal. No respiratory distress. Breath sounds: Normal breath sounds. No wheezing or rhonchi. Abdominal: General: Bowel sounds are normal. There is no distension. Palpations: Abdomen is soft. Tenderness: There is no abdominal tenderness. Musculoskeletal: General: Normal range of motion. Cervical back: Normal range of motion. No rigidity or tenderness. Right lower leg: No edema. Left lower leg: No edema. Lymphadenopathy: Cervical: No cervical adenopathy. Skin: General: Skin is warm and dry. Findings: Acne present. No rash. Neurological: Mental Status: She is alert. Mental status is at baseline. Psychiatric: Mood and Affect: Mood normal. Behavior: Behavior normal. Thought Content: Thought content normal. Judgment: Judgment normal. Physical Exam ASSESSMENT AND PLAN: Assessment/Plan Diagnoses and all orders for this visit: Wellness examination - amphetamine-dextroamphetamine (Adderall) 15 MG tablet; Take 1 tablet (15 mg) by mouth Daily - CBC; Future - Comprehensive metabolic panel; Future - Lipid panel; Future - TSH; Future - T4, free; Future -Reviewed family history, risk factors for disease and discussed importance of routine exercise and healthy diet. Recommended routine dental/eye exams. Labs ordered for today. Discussed routine screenings and patient is UTD. All questions answered. Family history of thyroid disease - TSH; Future - T4, free; Future Encounter to establish care Screening for deficiency anemia - CBC; Future Screening for cardiovascular condition - Comprehensive metabolic panel; Future Screening for lipid disorders - Lipid panel; Future Screening for thyroid disorder - TSH; Future - T4, free; Future Other specified attention deficit hyperactivity disorder (ADHD) ([facility]) - amphetamine-dextroamphetamine (Adderall) 15 MG tablet; Take 1 tablet (15 mg) by mouth Daily -OARRS reviewed,no red flags, discussed she needs to come in at least every 6 months for follow up. Would need to stop medication if she does get . control through OBGYN. Acne vulgaris -Clinda per derm. Anxiety and depression ([facility]) -Counseling monthly, helpful. Assessment/Plan Follow up in about 6 months (around 03/22/2025) for med check. documented in this encounter [facility] 08-20-2024 Miscellaneous Notes Formattin g of this note might be different from the original. Our office will no longer be prescribing this medication chcf. Options are behavioral health referral or finding new provider. We will prescribe it short term until one of these options are met. Left message for patient to call office to clarify Patient advised, she may look for new provider but will like to keep upcoming appt just incase. documented in this encounter [facility] 08-20-2024 Telephone encount er Note Our office will no longer be prescribing this medication oil heaterman. Options are behavioral health referral or finding new provider. We will prescribe it short term until one of these options are met. [facility] 08-20-2024 Telephone encount er Note Left message for patient to call office to clarify [facility] 08-20-2024 Telephone encount er Note Patient advised, she may look for new provider but will like to keep upcoming appt just incase. [facility] 03-19-2024 History of Presen t illness Narrative Images from the original note were not included. [id number] [id number] SUBJECTIVE: Patient ID: Janine Trinh is a 23 y.o. female. 23 yo WF with onset sorethroat and ears plugged x 10d and negative covid The following portions of the patient's history were reviewed and updated as appropriate: allergies, current medications, past family history, past medical history, past social history, past surgical history and problem list. REVIEW OF SYSTEMS: Review of Systems HENT: Positive for congestion, ear pain and sore throat. PHYSICAL EXAMINATION: Vitals: 03/19/24 1108 BP: 110/70 BP Site: Left Arm BP Postition: Sitting BP CUFF SIZE: M (9-13 inches) Pulse: 92 Resp: 16 Temp: 36.6 C (97.9 F) TempSrc: Tympanic Weight: 75.1 kg (165 lb 8 oz) Height: 167.6 cm (5' 6 ) Physical Exam Vitals and nursing note reviewed. Constitutional: Appearance: Normal appearance. HENT: Head: Normocephalic and atraumatic. Nose: Congestion and rhinorrhea present. Mouth/Throat: Pharynx: Posterior oropharyngeal erythema present. Cardiovascular: Rate and Rhythm: Normal rate and regular rhythm. Pulses: Normal pulses. Heart sounds: Normal heart sounds. Pulmonary: Effort: Pulmonary effort is normal. Breath sounds: Normal breath sounds. Skin: General: Skin is warm and dry. Neurological: General: No focal deficit present. Mental Status: She is alert and oriented to person, place, and time. Psychiatric: Mood and Affect: Mood normal. Behavior: Behavior normal. ASSESSMENT/PLAN: Janine was seen today for sore throat. Diagnoses and all orders for this visit: Pharyngitis, unspecified etiology Follow-up: zpak documented in this encounter [facility] 01-08-2024 History of Presen t illness Narrative Images from the original note were not included. [id number] [facility] [address] [id number] Patient: Janine Trinh Date of : 2000 Encounter Date: 01/08/2024 History of Present Illness: Chief Complaint: Chief Complaint Patient presents with Follow-up The patient is a 23 y.o. female, an established patient, and is here for kidney stones. Has not had any issues over the last year. Gets occasional twinges of flank pain that resolved spontaneously. Has not passed any stones that she is aware of. Doing well with hydration and minimizing sodium. 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 09/28/21 Follow-up in 3 months with this and KUB. Stones sent for analysis 90% Calcium oxalate monohydrate 10% Calcium phosphate (apatite) Litholink: Sodium 178, calcium 206 Litholink high sodium slightly high calcium. Discussed dietary modifications no medication needed at this time. Follow-up in 1 year with KUB. 12/26/22: Doing well, KUB today and in 1 year Urinalysis today: No results for input(s): EXTPOCURCO , EXTPOCURCH , EXTPOCAPP , EXTPOCURBS , EXTPOCURBIL , EXTPOCUKET , EXTPOCUSPG , EXTPOCUHGB , EXTPOCUPRO , EXTPOCUURO , EXTPOCULEU , EXTPOCUNIT , EXTPOCUWBC , EXTPOCUBLD , EXTPOCURBC , EXTPOCUCRY , EXTPOCUBAC , EXTPOCUTREP , EXTPOCUPH , EXTPOCULEE in the last 72 hours. Last BUN and creatinine: Lab Results Component Value Date BUN 13 09/06/2021 Lab Results Component Value Date CREATININE 1.07 (H) 09/06/2021 Last PSA: No results found for: PSA No results found for: PROSTATICSP Additional Lab/Culture results: None Imaging Reviewed during this Office Visit: None (Results were independently reviewed by physician and radiology report verified) Past Medical, Family, and Social History Update: The following portions of the patient's history were reviewed and updated as appropriate: allergies, current medications, past family history, past medical history, past social history, past surgical history and problem list. Past Medical History: Diagnosis Date ADD (attention deficit disorder) Allergic Kidney stone Uncomplicated asthma Past Surgical History: Procedure Laterality Date CYSTOSCOPY INSERTION STENT URETER Left 09/03/2021 Performed by Mansi Terrazas MD at [facility] CYSTOSCOPY RETROGRADE PYELOGRAM Left 09/03/2021 Performed by Mansi Terrazas MD at [facility] LASER HOLMIUM URETEROSCOPY RENAL STONE >1CM Left 09/03/2021 Performed by Mansi Terrazas MD at [facility] TONSILLECTOMY WISDOM TOOTH EXTRACTION Family History Problem Relation Age of Onset Hypertension Maternal Grandmother Stroke Maternal Grandmother No Known Problems Mother No Known Problems Father Current Outpatient Medications Medication Sig Dispense Refill amphetamine-dextroamphetamine XR (ADDERALL XR) 15 mg 24 hr capsule Take 1 capsule (15 mg total) by mouth in the morning. Max Daily Amount: 15 mg. 30 capsule 0 clindamycin (CLINDAGEL) 1 % gel APPLY A PEA SIZED AMOUNT TO FACE EVERY MORNING levocetirizine (XYZAL) 5 mg tablet Take 1 tablet (5 mg total) by mouth nightly. LOW-OGESTREL, 28, 0.3-30 mg-mcg per tablet TAKE 1 TABLET BY MOUTH EVERY DAY 84 tablet 1 No current facility-administered medications for this visit. (All medications reviewed and updated by provider since last office visit or hospitalization) Allergies: No known drug allergies Tobacco History: Social History Tobacco Use Smoking Status Never Smokeless Tobacco Never (If patient a smoker, smoking cessation counseling offered) Social History: Social History Substance and Sexual Activity Alcohol Use Yes Review of Systems: General: Negative for chills and fever. Cardiovascular: Negative for chest pain and shortness of breath. Gastrointestinal: Negative for constipation, diarrhea, nausea, and vomitting. -per HPI Physical Exam: BP 104/69 (BP Site: Left Arm, BP Postition: Sitting, BP CUFF SIZE: M (9-13 inches)) Pulse 105 Ht 167.6 cm (5' 6 ) Wt 75.3 kg (166 lb) BMI 26.79 kg/m General: AAOx3 Psych: normal mood and affect HEENT normal Lungs: Respiratory effort normal Cardiovascular: Normal peripheral pulses Abdomen: Soft, non-tender, non-distended. No CVA TTP Skin: Warm and dry MSK: FROM Neuro: CN II-XII grossly intact Assessment and Plan: Janine was seen today for follow-up. Diagnoses and all orders for this visit: Kidney stone Abnormal urinalysis Problem List Kidney stone - Primary Overview 01/08/24 Overall doing well will check KUB [...] this and KUB. Stones sent for analysis Abnormal urinalysis Follow-up: Discussed general stone recommendations per the AUA guideline. These included: Low Salt Diet- Dietary salt (sodium chloride) is linked to urinary calcium excretion. A randomized trial demonstrated that a lower salt diet, in conjunction with the recommended calcium intake and low animal protein consumption, reduced urinary calcium excretion in hypercalciuric stone formers. The Panel supports a target of ?100 mEq (2,300 mg) sodium intake daily. As this may be a difficult goal to achieve, especially at once, multi-tiered, progressive targets for reduction of sodium intake may be helpful. Fluid intake- Fluid intake is the main determinant of urine volume, and as such, high fluid intake is a critical component of stone prevention. Observational studies and a randomized controlled trial have demonstrated that higher fluid intake reduces the risk of stone formation. Although there is no definitive threshold for urine volume and increased risk (the relationship is continuous and may not be linear), an accepted goal is at least 2.5 liters of urine daily. Because of insensible losses and varying intake of fluid contained in food, a universal recommendation for total fluid intake is not appropriate. Instead, the recommendation should be tailored to the individual patient by using information on total volume derived from the 24-hour urine collections. There are no data to support the use of urine color as a guide, and the desire to have constantly dilute urine needs to be balanced against the need for sleep and competing activities of daily living, including work and school. Other Dietary modifications- Observational studies have found that certain beverages may be associated with risk of stone formation beyond their impact on urine volume. Indeed, alcoholic beverages, coffee, decaffeinated coffee, tea and wine have been shown in observational studies to be associated with a lower risk of stone formation, while sugar-sweetened beverages demonstrated an increased risk.33 However, these beverages have not been evaluated in randomized trials. On the other hand, a single randomized trial showed a benefit of reduced soda consumption, although the benefit was largely due to reduced intake of phosphoric acid-based soda (e.g. cola), and the overall reduction in stone recurrence rate was only 6% fewer stones at 3 years as compared with the control group which did not reduce soda consumption. Mansi Terrazas MD This note was created with the assistance of a speech recognition program. While intending to generate a timely document that accurately reflects the content of the visit, no guarantee can be provided that every grammatical or spelling mistake has been or will be identified or corrected. Thank you for your understanding. documented in this encounter [facility] 01-08-2024 Miscellaneous Notes Addended by: MANSI TERRAZAS on: 01/08/2024 04:00 PM Modules accepted: Orders documented in this encounter [facility] 01-08-2024 Note Addended by: Elise TERRAZAS on: 01/08/2024 04:00 PM Modules accepted: Orders [facility] 11-22-2023 Miscellaneous Notes Formattin g of this note might be different from the original. Adderall controlled medication contract signed 11-14-2023 documented in this encounter [facility] 11-22-2023 Telephone encount er Note Adderall controlled medication contract signed 11-14-2023 [facility] 11-14-2023 History of Presen t illness Narrative Images from the original note were not included. [id number] [id number] SUBJECTIVE: Patient ID: Janine Trinh is a 23 y.o. female. 23 yo WF with ADHD wants to retrun to adderall, vyvanase is too expensive The following portions of the patient's history were reviewed and updated as appropriate: allergies, current medications, past family history, past medical history, past social history, past surgical history and problem list. REVIEW OF SYSTEMS: Review of Systems Psychiatric/Behavioral: Positive for decreased concentration. PHYSICAL EXAMINATION: Vitals: 11/14/23 1256 BP: 116/70 BP Site: Left Arm BP Postition: Sitting BP CUFF SIZE: M (9-13 inches) Pulse: 72 Resp: 16 Weight: 75.5 kg (166 lb 8 oz) Height: 167.6 cm (5' 6 ) Physical Exam Vitals and nursing note reviewed. Constitutional: Appearance: Normal appearance. HENT: Head: Normocephalic and atraumatic. Eyes: Extraocular Movements: Extraocular movements intact. Pupils: Pupils are equal, round, and reactive to light. Cardiovascular: Rate and Rhythm: Normal rate and regular rhythm. Pulses: Normal pulses. Heart sounds: Normal heart sounds. Pulmonary: Effort: Pulmonary effort is normal. Breath sounds: Normal breath sounds. Skin: General: Skin is warm and dry. Neurological: General: No focal deficit present. Mental Status: She is alert and oriented to person, place, and time. Psychiatric: Mood and Affect: Mood normal. ASSESSMENT/PLAN: Janine was seen today for routine check up. Diagnoses and all orders for this visit: Attention deficit hyperactivity disorder (ADHD), predominantly inattentive type - amphetamine-dextroamphetamine XR (ADDERALL XR) 15 mg 24 hr capsule; Take 1 capsule (15 mg total) by mouth in the morning. Max Daily Amount: 15 mg. Follow-up: Oarrs , adderall 15mg 1 qd documented in this encounter [facility] 03-28-2023 Instructions Spencer Ibrahim PA-C - 03/28/2023 12:40 PM EST Take prescribed medication(s) as directed. Increase fluid intake and promote rest. Add OTC meds for symptomatic relief. Recommend use of Flonase nasal spray and daily antihistamine for congestion relief. Try adding humidifier/steam shower at night to help with symptom relief. If no improvement of symptoms in 3-5 days, follow up with PCP. If symptoms worsen or new ones develop, go to the ER immediately for further evaluation. The following attachments cannot be sent through Care Everywhere.URI (Upper Respiratory Infection): Viral (Malaysian)documented in this encounter [facility] 03-28-2023 History of Presen t illness Narrative Images from the original note were not included. Patient Name: [facility] Location: Janine Trinh [address] [place], [place] [address] Date Of : Date Of Visit: 2000 03/28/2023 MRN# Provider: [id number] Spencer Ibrahim PA-C Chief Complaint Patient presents with Fever Fever, ST, ears feel plugged, SANCHEZ, body aches, chills, sweats, fatigue x Monday, at home covid was negative yesterday Assessment & Plan 1. Upper respiratory tract infection, unspecified type brompheniramine-pseudoePHEDrine -DM 2-30-10 mg/5 mL syrup 2. Sore throat POC Strep A - Molecular No follow-ups on file. Medical Decision Making 22-year-old female here with sore throat, fever, body aches, bilateral ear fullness x2 days. She did take a home COVID test that was negative. She denies any known exposures to COVID, strep, flu, cough, abdominal pain. Clinically she is afebrile, stable, communicating appropriately, no acute distress. Umkal-nv-tapa strep testing is negative. Exam as below, likely a viral etiology to her upper respiratory symptoms. Physical exam findings and treatment options were discussed. I recommend Bromfed-DM, daily antihistamine, Flonase nasal spray, Tylenol/ibuprofen for pain and fevers, plenty of rest and fluids for symptom relief. If symptoms fail to improve, they were instructed to follow up with PCP. If symptoms worsen or new ones develop they should return to the urgent care or report to the ER immediately. All questions were answered and they expressed understanding. Portions of this note utilized [employer] software. There is the possibility of grammatical or textual errors inherent to this technology that may be missed during proofreading. Additional Clinical Comments Discussed over the counter medications for symptomatic management and side effects of medications. Recommended taking all medications with food and to stop medications if they develop any signs of an allergic reaction. Educated patient and/or guardian about signs and symptoms that would warrant further immediate evaluation. Recommended that they should return to urgent care, make an appointment with their family physician, or go to the emergency room if symptoms persist or get acutely worse. Recommended follow up within the next week with their PCP or to get established with a PCP soon in order to follow up appropriately. Subjective 22 y.o. female presents with Fever (Fever, ST, ears feel plugged, SANCHEZ, body aches, chills, sweats, fatigue x Monday, at home covid was negative yesterday) Sore throat, body aches, b/l ear pain. No known exposures to covid, strep, flu. Had a fever at home of 100.6F which has improved today. Sore Throat This is a new problem. Episode onset: 2 days. The problem has been gradually worsening. Neither side of throat is experiencing more pain than the other. The maximum temperature recorded prior to her arrival was 100.4 - 100.9 F. Associated symptoms include congestion, ear pain, a plugged ear sensation and trouble swallowing. Pertinent negatives include no abdominal pain, coughing, ear discharge or swollen glands. She has had no exposure to strep or mono. She has tried acetaminophen for the symptoms. Review Of Systems Review of Systems Constitutional: Positive for chills and fever. HENT: Positive for congestion, ear pain, sore throat and trouble swallowing. Negative for ear discharge, postnasal drip, rhinorrhea, sinus pressure and sinus pain. Respiratory: Negative for cough. Gastrointestinal: Negative for abdominal pain. Medical History History reviewed. No pertinent past medical history. Past Surgical History: Procedure Laterality Date KIDNEY STONE SURGERY WISDOM TOOTH EXTRACTION There is no problem list on file for this patient. Social History Social History Tobacco Use Smoking status: Never Smokeless tobacco: Never Vaping Use Vaping Use: Never used Family History History reviewed. No pertinent family history. Objective Physical Exam BP 123/83 Pulse 98 Temp 98.2 F (36.8 C) (Tympanic) Resp 16 Ht 5' 6 Wt 68 kg (150 lb) SpO2 98% BMI 24.21 kg/m Vision/Hearing Exam:No results found. Physical Exam Vitals and nursing note reviewed. Constitutional: General: She is not in acute distress. Appearance: Normal appearance. She is not ill-appearing or toxic-appearing. HENT: Head: Normocephalic and atraumatic. Right Ear: Tympanic membrane, ear canal and external ear normal. Left Ear: Tympanic membrane, ear canal and external ear normal. Nose: Congestion present. Mouth/Throat: Mouth: Mucous membranes are moist. Pharynx: Oropharynx is clear. Uvula midline. Posterior oropharyngeal erythema present. No oropharyngeal exudate. Tonsils: No tonsillar exudate or tonsillar abscesses. Eyes: Conjunctiva/sclera: Conjunctivae normal. Cardiovascular: Rate and Rhythm: Normal rate. Pulmonary: Effort: Pulmonary effort is normal. Breath sounds: Normal breath sounds. No wheezing, rhonchi or rales. Abdominal: Palpations: Abdomen is soft. Lymphadenopathy: Cervical: No cervical adenopathy. Skin: General: Skin is warm and dry. Neurological: General: No focal deficit present. Mental Status: She is alert and oriented to person, place, and time. Psychiatric: Mood and Affect: Mood normal. Behavior: Behavior normal. Procedure Notes Procedures Results Recent Results (from the past 168 hour(s)) POC Strep A - Molecular Collection Time: 03/28/23 12:21 PM Result Value Ref Range Strep A Screen Negative Negative No orders to display Orders Placed This Visit Orders Placed This Encounter Procedures POC Strep A - Molecular Medication List At End Of Visit Current Outpatient Medications Medication Sig Dispense Refill levocetirizine (XYZAL) 5 MG tablet Take by mouth every evening . lisdexamfetamine (VYVANSE) 40 MG capsule Take 1 (one) capsule (40 mg total) by mouth daily . Low-Ogestrel, 28, 0.3-30 mg-mcg per tablet Take 1 (one) tablet by mouth daily . montelukast (SINGULAIR) 10 mg tablet Take by mouth . brompheniramine-pseudoePHEDrine -DM 2-30-10 mg/5 mL syrup Take 10 mL by mouth 4 (four) times a day as needed (Medication may have drowsy side effect, do not combine with other sleep agents) . 200 mL 0 No current facility-administered medications for this visit. Patient Instructions Take prescribed medication(s) as directed. Increase fluid intake and promote rest. Add OTC meds for symptomatic relief. Recommend use of Flonase nasal spray and daily antihistamine for congestion relief. Try adding humidifier/steam shower at night to help with symptom relief. If no improvement of symptoms in 3-5 days, follow up with PCP. If symptoms worsen or new ones develop, go to the ER immediately for further evaluation. documented in this encounter [facility] 09-15-2022 Evaluation note Encounter Date Diagnosis Assessment Notes September, Dysuria (ICD-10 - R30.0) September, Acute cystitis with hematuria (ICD-10 - N30.01) Discussed diagnosis and dipstick findings with patient. Will treat patient for UTI. Instructed patient to take antibiotic as prescribed, take with food, complete entire course of therapy even if feeling better. Allergies and recent antibiotic use were reviewed with patient. Advised patient culture was sent today and we will call with her results in 2-5 days. Patient instructed to push fluids. Patient symptoms should improve in the next 48 hours, if symptoms persist follow up with PCP or UC. Immediate eval by ER if back or flank pain, fever, chills, N/V, or any other concerning symptoms arise. Patient verbalizes understanding and is agreeable to treatment plan. [facility] Other 04-13-2023 Hospital Discharge instructions* Discharge Instructions* Marisela ELIDA River - 08/25/2022 7:12 PM EDT Results for orders placed or performed during the hospital encounter of 08/25/22 CHEM 7 (LYTES,BUN,CREA,GLUC) Result Value Ref Range Sodium 137 135 - 145 mmol/L Potassium 4.2 3.5 - 5.0 mmol/L Chloride 107 98 - 108 mmol/L CO2 23 21 - 31 mmol/L Glucose 96 70 - 99 mg/dL BUN 8 7 - 25 mg/dL Creatinine 0.85 0.50 - 1.20 mg/dL Bun/Crea Ratio 9 Osmolality (Calculated) 286 278 - 305 mOsm/kg Anion Gap 11 7 - 17 mmol/L eGFR, CKD-EPI, Female >90 >=60 mL/min/1.73m2 CBC AND ELECTRONIC DIFF Result Value Ref Range WBC Count 6.34 3.99 - 11.19 K/uL RBC Count 4.28 3.91 - 5.04 M/uL Hemoglobin 13.6 11.4 - 15.2 g/dL Hematocrit 40.0 34.9 - 44.3 % Mean Cell Volume 93.5 79.6 - 97.7 fL Mean Cell Hgb 31.8 25.9 - 33.9 pg Mean Cell Hgb Conc 34.0 31.4 - 35.9 g/dL RBC Distribution 11.9 10.8 - 14.9 % Platelet Count 224 150 - 393 K/uL Mean Platelet Volume 10.7 8.5 - 12.2 fL DIFF STATUS Electronic Differential Segs + Bands Auto 45.9 % Immature Grans % 0.2 % Lymphocyte % Auto 46.1 % Monocyte % Auto 6.5 % Eosinophil % Auto 1.1 % Basophil % Auto 0.2 % Nucleated RBC 0.0 <=0.2 /100 WBC Segs + Bands,Absolute Auto 2.92 1.64 - 7.28 K/uL Immature Grans Absolute <0.04 <=0.08 K/uL Abs Lymph Auto 2.92 1.16 - 3.51 K/uL Abs [place] Auto 0.41 0.22 - 0.87 K/uL Abs Eos Auto 0.07 0.00 - 0.42 K/uL Abs Baso Auto <0.04 0.00 - 0.15 K/uL BETA HCG, QUANT, BLOOD Result Value Ref Range HCG (Quant) Serum <2.6 mIU/mL URINALYSIS REFLEX TO CULTURE PERFORMABLE Result Value Ref Range Color Yellow Yellow Appearance Urine Clear Clear Glucose Urine Negative Negative Ketones Urine 15 mg/dL = Small (A) Negative Specific [place] Urine 1.020 >1.001 - <1.035 Blood Urine Moderate (A) Negative pH Urine 7.0 5.0 - 7.0 Protein Urine 30 mg/dL (A) Negative Urobilinogen Urine 1.0 E.U./dL 0.2 E.U/dL, 1.0 E.U/dL Nitrites Urine Negative Negative Leukocyte Esterase Small (A) Negative RBC Urine 3-5 (A) 0 - 2 /HPF WBC Urine 6-9 (A) 0 - 5 /HPF Squamous/Epithelial Cells 2-5/hpf = 2+ 1/hpf = 1+, 2-5/hpf = 2+, 0/hpf = 0+, ABSENT Bacteria PRESENT (A) ABSENT CT ABDOMEN/PELVIS WITHOUT CONTRAST Final Result IMPRESSION: 1. Bilateral small nonobstructing renal calculi. No obstructing stones. No hydronephrosis. 2. Small nonspecific left ovarian cyst measuring up to 2.8 cm in size. ARE REFERRED TO UROLOGY AND URINE IS CULTURED * Attachments The following attachments cannot be sent through Care Everywhere. * Kidney Stone (Malaysian) * Urinary Tract: Female: Anatomy Sketch (Malaysian) documented in this [facility]04-13-2023 Physician Emergency department Note* Eliecer Leahy MD - 08/25/2022 5:16 PM EDT HISTORY 22 y.o. year old female history of nephrolithiasis here today for left sided flank and back pain. Nausea without vomiting. No hematuria but some urgency. She did note some dark fluid after wiping upon urination. She is on OBCP and is not due for her menses in one week. Her prior stone was 9 mm and required a stent for removal. REVIEW OF SYSTEMS All other review of systems were reviewed and are negative unless otherwise documented. PHYSICAL EXAM height is 1.676 m (5' 6 ). Her oral temperature is 98 F (36.7 C). Her blood pressure is 122/88 and her pulse is 104. Her respiration is 16 and oxygen saturation is 99%. General: well appearing, no distress and in no acute distress Respiratory: clear to auscultation, no wheezes, rales, or rhonchi Cardiovascular: regular rate and rhythm, no murmurs, rubs, or gallops, positive tachycardia GI: soft, nontender, no rebound tenderness or guarding, no CVAT Skin: warm, dry, no diaphoresis ASSESSMENT Patient seen and examined independently. LUCY to follow IMPRESSION Left flank pain Medical Decision Making IV fluids, anti-emetics/toradol, labs, urinalysis, CT stone Amount and/or Complexity of Data Reviewed Labs: ordered. Radiology: ordered. Risk Prescription drug management. PAST MEDICAL HISTORY Past Medical History: Diagnosis Date Kidney stones PAST SURGICAL HISTORY Past Surgical History: Procedure Laterality Date TONSILLECTOMY WISDOM TEETH EXTRACTION ALLERGIES No Known Allergies SOCIAL HISTORY Social History Socioeconomic History Marital status: Single Tobacco Use Smoking status: Never Smokeless tobacco: Never Substance and Sexual Activity Alcohol use: Not Currently Drug use: Never On 08/25/2022, I personally saw and examined the patient today. I was involved in the management andagree with the history, examination and medical decision making noted and documented and agree withthe plan of care. MD Eliecer Bain MD 08/25/22 0715 [facility] Work Phone: [phone] Emergency department Note* Eliecer Leahy MD - 08/25/2022 5:16 PM EDT HISTORY 22 y.o. year old female history of nephrolithiasis here today for left sided flank and back pain. Nausea without vomiting. No hematuria but some urgency. She did note some dark fluid after wiping upon urination. She is on OBCP and is not due for her menses in one week. Her prior stone was 9 mm and required a stent for removal. REVIEW OF SYSTEMS All other review of systems were reviewed and are negative unless otherwise documented. PHYSICAL EXAM height is 1.676 m (5' 6 ). Her oral temperature is 98 F (36.7 C). Her blood pressure is 122/88 and her pulse is 104. Her respiration is 16 and oxygen saturation is 99%. General: well appearing, no distress and in no acute distress Respiratory: clear to auscultation, no wheezes, rales, or rhonchi Cardiovascular: regular rate and rhythm, no murmurs, rubs, or gallops, positive tachycardia GI: soft, nontender, no rebound tenderness or guarding, no CVAT Skin: warm, dry, no diaphoresis ASSESSMENT Patient seen and examined independently. LUCY to follow IMPRESSION Left flank pain Medical Decision Making IV fluids, anti-emetics/toradol, labs, urinalysis, CT stone Amount and/or Complexity of Data Reviewed Labs: ordered. Radiology: ordered. Risk Prescription drug management. PAST MEDICAL HISTORY Past Medical History: Diagnosis Date Kidney stones PAST SURGICAL HISTORY Past Surgical History: Procedure Laterality Date TONSILLECTOMY WISDOM TEETH EXTRACTION ALLERGIES No Known Allergies SOCIAL HISTORY Social History Socioeconomic History Marital status: Single Tobacco Use Smoking status: Never Smokeless tobacco: Never Substance and Sexual Activity Alcohol use: Not Currently Drug use: Never On 08/25/2022, I personally saw and examined the patient today. I was involved in the management andagree with the history, examination and medical decision making noted and documented and agree withthe plan of care. MD Eliecer Bain MD 08/25/22 1720 * Radha Nazario RN - 08/25/2022 4:07 PM EDT C/O L flank pain that started over the last few day that has became worse, has a hx of kidney stones, feels similar to kidney stones in past, took ibuprofen for pain. [facility]* Radha Nazario RN - 08/25/2022 4:07 PM EDT C/O L flank pain that started over the last few day that has became worse, has a hx of kidney stones, feels similar to kidney stones in past, took ibuprofen for pain. [facility]02-11-2022 Evaluation note* Encounter Date Diagnosis Assessment Notes Treatment Notes Treatment Clinical Notes Jun, Nausea (ICD-10 - R11.0) Jun, Syncope, unspecified syncope type (ICD-10 - R55) Drink plenty fluids and get plenty of rest. Call your family doctor today for recommendations for follow-up appointment or to go to the ER for evaluation. [facility] Other 11-15-2021 Evaluation note* Encounter Date Diagnosis Assessment Notes Treatment Notes Treatment Clinical Notes Mar, Allergic contact dermatitis, unspecified trigger (ICD-10 - L23.9) If symptpoms do not improve call crayon sawyer and discuss taking your antihistamines short terms for symptoms. [facility] Other Evaluation note* Diagnosis Urinary tract infection with hematuria, site unspecified- Primary Kidney stone Calculus of kidney [facility] [employer] Other Evaluation note* Diagnosis Upper respiratory tract infection, unspecified type- Primary Sore throat Acute pharyngitis [facility] Diagnosis Attention deficit hyperactivity disorder (ADHD), predominantly inattentive type [facility] Diagnosis Attention deficit hyperactivity disorder (ADHD), predominantly inattentive type [facility] Diagnosis Attention deficit hyperactivity disorder (ADHD), predominantly inattentive type [facility] Diagnosis Attention deficit hyperactivity disorder (ADHD), predominantly inattentive type [facility] Diagnosis Kidney stone- Primary Calculus of kidney Abnormal urinalysis Other nonspecific finding on examination of urine [facility] Diagnosis Pharyngitis, unspecified etiology- Primary [facility]* Diagnosis Attention deficit hyperactivity disorder (ADHD), predominantly inattentive type [facility]* Diagnosis Wellness examination- Primary Family history of thyroid disease Family history of other endocrine and metabolic diseases Encounter to establish care Screening for deficiency anemia Screening for other and unspecified deficiency anemia Screening for cardiovascular condition Screening for other and unspecified cardiovascular conditions Screening for lipid disorders Screening for thyroid disorder Other specified attention deficit hyperactivity disorder (ADHD) (CMS/HCC) Acne vulgaris Other acne Anxiety and depression (CMS/HCC) [facility]* Diagnosis Wellness examination Other specified attention deficit hyperactivity disorder (ADHD) documented in [facility] encounter [facility]* Diagnosis Wellness examination Other specified attention deficit hyperactivity disorder (ADHD) documented [facility] HealthcareHistory general Narrative - Reported* Type Description Date Medical History acne Medical History allergies Surgical History tonsillectomy 2013 Hospitalization History see above [facility] Other History general Narrative - Reported* Type Description Date Medical History acne Medical History allergies Medical History Renal stones Surgical History tonsillectomy 2013 Surgical History wisdom teeth Surgical History kidney stone Hospitalization History see above [facility] Other InstructionsNot on filedocumented in this encounter [facility] filedocumented in this [facility]* Attachments The following attachments cannot be sent through Care Everywhere. * Sore throat in adults (Malaysian) documented [facility] SystemInstructionsNot on file documented in this encounterProMedica [facility] SystemInstructionsNot on file documented in this encounterProMedica Health SystemReason for referral (narrative)* Consultation (Routine) - New Request Specialty Diagnoses / Procedures Referred By Sisi pope Referred To Contact Urology Diagnoses Urinary tract infection with hematuria, site unspecified Kidney stone Marisela River [facility] [address] [place] [address] Referral ID Status Reason Start Date Expiration Date V isits Requested Visits Authorized [id number] New Request 08/25/2022 09/19/2023 1 1 [facility] Summary Purpose Family History No Family History Records FoundNo Family History Records FoundNo Family History Records FoundNo Family History Records FoundNo Family History Records FoundNo Family History Records FoundNo Family History Records FoundNo Family History Records Found Advance Directives No Advanced Directives Records FoundNo Advanced Directives Records FoundNo Advanced Directives Records FoundNo Advanced Directives Records FoundNo Advanced Directives Records FoundNo Advanced Directives Records FoundNo Advanced Directives Records FoundNo Advanced Directives Records Found Additional Source Comments INFORMATION SOURCE (unrecogn ized section and content) DATE CREATED AUTHOR [facility] DATE CREATED AUTHOR AUTHOR'S ORGANIZ ATION 09/22/2022 [facility] DATE CREATED AUTHOR AUTHOR'S ORGANIZ ATION 03/29/2023 [facility] DATE CREATED AUTHOR AUTHOR'S ORGANIZ ATION 09/01/[address] [facility] DATE CREATED AUTHOR AUTHOR'S ORGANIZ ATION 01/10/2024 [facility] DATE CREATED AUTHOR AUTHOR'S ORGANIZ ATION 03/20/2024 [facility] DATE CREATED AUTHOR AUTHOR'S ORGANIZ ATION 09/21/2024 [facility] EPIC DATE CREATED AUTHOR AUTHOR'S ORGANIZ ATION 11/09/2024 [facility] REASON FOR VISIT (unrecogniz ed section and content) Reason Comments Flank Pain Reason Comments Fever Fever, ST, ears feel plugged, SANCHEZ, body aches, chills, sweats, fatigue x Monday, at home covid was negative yesterday Reason Onset Date Comments Med Refill 06/12/2024 Reason Onset Date Comments Med Refill 05/12/2023 Reason Comments Routine Check up Reason Onset Date Comments Med Refill 12/27/2023 Reason Comments Follow-up Reason Comments Sore Throat Reason Onset Date Comments Med Refill 04/08/2024 Reason Onset Date Comments Med Refill 07/16/2024 Reason Onset Date Comments Med Refill 08/20/2024 Reason Comments Establish Care Reason Onset Date Comments Med Refill 10/30/2024 Reason Onset Date Comments Med Refill 12/02/2024 Reason Onset Date Comments Med Refill 01/06/2025 Scheduled Active and Recently Administ ered Medications (unrecognized section and content) Medication Order 08/23/2022 08/24/2022 08/25/2022 Ketorolac (TORADOL) injection 15 mg (COMPLETED) 15 mg, Intravenous, ONCE, 1 dose, On Noni 08/25/22 at 1800 1731 (Given - Provid er: Joshua Sheffield RN) Ondansetron 4mg/2ml (ZOFRAN) injection 4 mg (COMPLETED) 4 mg, Intravenous, ONCE, 1 dose, On Noni 08/25/22 at 1800 1730 (Given - Provid er: Joshua Sheffield RN) Sodium chloride 0.9% IV solution 1,000 mL (COMPLETED) 1,000 mL, Intravenous, ONCE, 1 dose, On Noni 08/25/22 at 1800, Give bolus. For hydration 1730 ($$New Bag$$ - Provider: Joshua Sheffield RN)1918 (Stopped - Provider: Joshua Sheffield RN) Care Teams (unrecognized sec tion and content) Plastic Outfitter Relationship Specialty Start Date End Date Defrance, Mansi, MD [address] [place] [id number] PCP - General Family Medicine 08/25/22 Plastic Outfitter Relationship Specialty Start Date End Date Mansi Contreras MD [address] [place] [address] PCP - General Family Medicine 03/28/23 Plastic Outfitter Relationship Specialty Start Date End Date Mansi Contreras MD [address] [place] [address] PCP - General Family Medicine 05/02/17 Plastic Outfitter Relationship Specialty Start Date End Date Mansi Contreras MD [address] [place] [address] PCP - General Family Medicine 05/02/17 Plastic Outfitter Relationship Specialty Start Date End Date Mansi Contreras MD [address] [place] [address] PCP - General Family Medicine 05/02/17 Plastic Outfitter Relationship Specialty Start Date End Date Mansi Contreras MD [address] [place] [address] PCP - General Family Medicine 05/02/17 Plastic Outfitter Relationship Specialty Start Date End Date Mansi Contreras MD [address] [place] [address] PCP - General Family Medicine 05/02/17 Plastic Outfitter Relationship Specialty Start Date End Date Wojciech Atwood MD [address] [place] [address] PCP - General Internal Medicine 08/19/24 Plastic Outfitter Relationship Specialty Start Date End Date Wojciech Atwood MD [address] [place], [place] [id number] PCP - General Internal Medicine 08/19/24 Plastic Outfitter Relationship Specialty Start Date End Date Mansi Contreras MD PCP - General Family Medicine 10/13/22 Plastic Outfitter Relationship Specialty Start Date End Date Petty Araya MD [address] [place], [place] [id number] PCP - General Family Medicine 09/19/24 Plastic Outfitter Relationship Specialty Start Date End Date Petty Araya MD PCP - General Family Medicine 09/19/24 Clarita Kimball PA [facility] [place] [address] PCP - Medical [employer] 12/27/22 05/14/99 Nancy Alvarenga NP [address] [place] [address] Nurse Practitioner Family Medicine 10/01/24 Plastic Outfitter Relationship Specialty Start Date End Date Petty Araya MD PCP - General Family Medicine 09/19/24 Clarita Kimball PA [address] [place] [address] [place] [address] PCP - Medical [employer] 12/27/22 05/14/99 Nancy Alvarenga NP [address] [place], [place] [id number] Nurse Practitioner Family Medicine 10/01/24 Plastic Outfitter Relationship Specialty Start Date End Date Petty Araya MD PCP - General Family Medicine 09/19/24 Nancy Alvarenga NP [address] [facility] [place] [address] PCP - Medical [employer] 12/27/22 05/14/99 Nancy Alvarenga NP [address] [facility] [place] [address] Nurse Practitioner Family Medicine 10/01/24 Plastic Outfitter Relationship Specialty Start Date End Date Petty Araya MD PCP - General Family Medicine 09/19/24 Nancy Alvarenga NP [address] [facility] [place] [address] PCP - Medical [employer] 12/27/22 05/14/99 Nancy Alvarenga NP [address] [facility] [place] [address] Nurse Practitioner Family Medicine 10/01/24 FOR RECORDS PERTAINING TO PATIENTS WHO ARE OR HAVE BEEN ENROLLED IN A CHEMICAL DEPENDENCY/SUBSTANCEABUSE PROGRAM, SOME INFORMATION MAY BE OMITTED. This clinical summary was aggregated from multiple sources. Caution should be exercised in using it in the provision of clinical care. This summary normalizes information from multiple sources, and as a consequence, information in this document may materially change the coding, format and clinical context of patient data. In addition, data may be omitted in some cases. CLINICAL DECISIONS SHOULD BE BASED ON THE PRIMARY CLINICAL RECORDS. [facility] [employer] [facility]. provides no warranty or guarantee of the accuracy or completeness of information in this document.
[2025-02-03 11:08] LABS: Age Gdln ACOG Testing Note (.); IGP, rfx Aptima HPV ASCU Note (.)
== END 2025-01-28 20:15 | disposition home or self-care (01) ==
LOC: LAB 20:14
PROVIDERS: PCP Family Medicine; Visit Provider Physician Assistant
DX: Z01.419 Encounter for gynecological examination (general) (routine) without abnormal findings (principal)
CPT/HCPCS: 88175